=== PATIENT | female | born 1950 | race Caucasian/White ===

== ENCOUNTER → 2019-03-25 11:33 | Emergency (ER) | payer MEDICARE ==
[~2019-03-25 11:33] MED LIST: LORazepam TAB(*) 1 MG PO ONE; Meclizine TAB* 12.5 MG PO ONE; NS 0.9% 1000 ML** 1,000 ML IV ONE
[2019-03-25 14:51] LABS: ABS Eosinophils 0.2 10^3/ul (0-0.6); ABS Lymphocytes 0.9 10^3/ul (1.0-4.8); ABS Monocytes 0.5 10^3/ul (0-0.8); ABS Neutrophils 3.4 10^3/ul (1.5-7.7); Eosinophil % 3.8 %; Hematocrit 36 % (35-47); Lymphocyte % 17.9 %; Mean Corpuscular HGB Conc 33 g/dL (31-36); Mean Corpuscular Hemoglobin 32 pg (27-31); Mean Corpuscular Volume 95 fL (80-97); Mean Platelet Volume 6.8 fL (7.4-10.4); Platelet Count 262 10^3/uL (150-450); Red Cell Distribution Width 15 % (10.5-15)
[2019-03-25 15:14] LABS: ALT 10 U/L (7-52); AST 14 U/L (13-39); Albumin 4.2 g/dL (3.2-5.2); Albumin/Globulin Ratio 1.6 (1-3); Alkaline Phosphatase 81 U/L (34-104); Anion Gap 5 mmol/L (2-11); BUN/Creatinine Ratio 8.7 (8-20); Blood Urea Nitrogen 17 mg/dL (6-24); C Reactive Protein 11.09 mg/L (<8.01); CO2 Carbon Dioxide 28 mmol/L (22-32); Calcium 9.3 mg/dL (8.6-10.3); Chloride 107 mmol/L (101-111); Creatine Kinase 69 U/L (10-223); EGFR African American 30.5 (>60); EGFR Non-African American 25.2 (>60); Globulin 2.6 g/dL (2-4); Glucose 93 mg/dL (70-100); Magnesium 2.2 mg/dL (1.9-2.7); Potassium 4.6 mmol/L (3.5-5.0); Sodium 140 mmol/L (135-145); Total Protein 6.8 g/dL (6.4-8.9); Troponin I 0.01 ng/mL (<0.04)
[2019-03-25 15:29] LABS: Alcohol < 10 mg/dL (<10)
[2019-03-25 15:45] LABS: TSH (Thyroid Stimulating Horm) 1.03 mcIU/mL (0.34-5.60)
--- NOTE | 2019-03-25 16:23 | ED ---
Dizziness - HPI Summary HPI Summary: A 69 y/o female presents to [facility] with a chief complaint of dizziness since this morning. She reports that she was getting out of bed when she fell on some laundry cause everthing was spinning. . She said that she went down slowly and slid down the wall.No injuries. No LOC When she closes her eyes her dizziness gets better. The patient denies any fever, chills or ear pain. She did not vomit after breakfast, but still had nausea. She denies a headache, vision changes No cp, sob. No paresthesia, difficulty with speech or thought. No h/o similar - pt states does get motion sick. She reports a Hx of DM, HTN, bipolar, and anxiety. She takes Ativan or Seroquel. She also takes Prozac, but she has not taken her HTN medications since September. She states the pharmacy told her that doesn't make any mrore. Her PCP is Dr. Samson and she last saw her 1 month ago. Per daughter, the patient may have had a TIA. The patient denies smoking. She reports EtOH use but not today or yesterday. She is retired. She has not taken her medication today. - History Of Current Complaint Chief Complaint: EDDizziness Stated Complaint: DIZZINESS PER PT. Time Seen by Provider: 03/25/19 15:54 Hx Obtained From: Patient Onset/Duration: Still Present Timing: Hours Severity Initially: Mild Severity Currently: Mild Character: Dizzy Aggravating Factor(s): Nothing Alleviating Factor(s): Closing Eyes Associated Signs And Symptoms: Positive: Nausea. Negative: Vomiting, Fever - Allergies/Home Medications Allergies/Adverse Reactions: Allergies Allergy/AdvReac Type Severity Reaction Status Date / Time divalproex sodium Allergy Shakes Verified 03/25/19 16:02 [From Depakote] indomethacin [From Indocin] Allergy Diarrhea Verified 03/25/19 16:02 nabumetone [From Relafen] Allergy Unknown Verified 03/25/19 16:02 Reaction Details penicillin V Allergy Hives Verified 03/25/19 16:02 tramadol [From Ultram] Allergy Headache Verified 03/25/19 16:02 Home Medications: Home Medications Acetaminophen [Tylenol Extra Strength] 500 mg PO Q6HR PRN 03/25/19 [History Confirmed 03/25/19] Ascorbic Acid TAB* [Vitamin C TAB*] 1,000 mg PO BID 03/25/19 [History Confirmed 03/25/19] Budesonide/Formote 160/4.5(NF) [Symbicort 160/4.5 (NF)] 2 puff INH BID 03/25/19 [History Confirmed 03/25/19] Cromolyn Sodium [Nasal Allergy [place]] 2 spray BOTH NARES DAILY PRN 03/25/19 [ History Confirmed 03/25/19] Desmopressin TAB (NF) 0.1 mg PO BID 03/25/19 [History Confirmed 03/25/19] Diphenoxylat/Atrop 2.5-0.025M* [Lomotil TAB*] 1 tab PO QID PRN 03/25/19 [ History Confirmed 03/25/19] FLUoxetine CAP* [PROzac CAP*] 40 mg PO DAILY 03/25/19 [History Confirmed ] Gabapentin CAP(*) [Neurontin 300 CAP(*)] 300 mg PO BID 03/25/19 [History Confirmed 03/25/19] LORazepam TAB(*) [Ativan 0.5 MG TAB (*)] 0.5 mg PO Q6HR PRN 03/25/19 [History Confirmed 03/25/19] Lansoprazole CAP (NF) [Prevacid CAP (NF)] 40 mg PO DAILY 03/25/19 [History Confirmed 03/25/19] Levothyroxine TAB* [Synthroid TAB*] 88 mcg PO DAILY 03/25/19 [History Confirmed 03/25/19] Multivitamins/Minerals TAB* [Theragran/minerals TAB*] 1 tab PO DAILY 03/25/19 [ History Confirmed 03/25/19] Psyllium ADRIANA* [Metamucil ADRIANA*] 1 pkt PO DAILY PRN 03/25/19 [History Confirmed ] QUEtiapine TAB* [Seroquel 100 MG *] 200 mg PO BEDTIME 03/25/19 [History Confirmed 03/25/19] lamoTRIgine [Lamictal] 300 mg PO DAILY 03/25/19 [History Confirmed 03/25/19] PMH/Surg Hx/FS Hx/Imm Hx Previously Healthy: Yes Endocrine/Hematology History: Reports: Hx Diabetes - INSIPIDUS, Hx Thyroid Disease Cardiovascular History: Reports: Hx Hypertension Denies: Hx Pacemaker/ICD Respiratory History: Denies: Hx Asthma, Hx Chronic Obstructive Pulmonary Disease (COPD) GI History: Reports: Hx Gastroesophageal Reflux Disease, Hx Hiatal Hernia, Hx Irritable Bowel Denies: Hx Ulcer History: Denies: Hx Renal Disease Musculoskeletal History: Reports: Hx Fibromyalgia Sensory History: Denies: Hx Hearing Aid Psychiatric History: Reports: Hx Panic Disorder, Other Psychiatric Issues/ Disorders - schizo-affective disorder, SAD, anxiety - Cancer History Cancer Type, 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 Hx Chemotherapy: No Hx Radiation Therapy: No - Surgical History Surgery Procedure, Year, and Place: tubal ligation-CATARACTS 2010 Infectious Disease History: No Infectious Disease History: Reports: Hx Shingles Denies: Hx Clostridium Difficile, Hx Hepatitis, Hx Human Immunodeficiency Virus (HIV), Hx of Known/Suspected MRSA, Hx Tuberculosis, Hx Known/Suspected VRE , Hx Known/Suspected VRSA, History Other Infectious Disease, Traveled Outside the [place] in Last 30 Days - Family History Known Family History: Positive: Hypertension, Non-Contributory Family History: mother had ear tubes placed - Social History Occupation: Retired Lives: With Family Alcohol Use: Occasionally Substance Use Type: Reports: None Smoking Status (MU): Never Smoked Tobacco Review of Systems Negative: Fever, Chills Eyes: Negative Negative: Photophobia, Blurred Vision, Diplopia ENT: Negative Negative: Ear Ache Cardiovascular: Negative Respiratory: Negative Positive: Nausea. Negative: Vomiting Neurological: Other - positive: dizziness Negative: Headache All Other Systems Reviewed And Are Negative: Yes Physical Exam - Summary Physical Exam Summary: Vital Signs Reviewed: Yes A+Ox3, keeps eyes closed, slow movement Eyes: Conjunctiva Clear, CADY. EOM intact and full ENT: Hearing grossly normal TM x 2 clear, mmoist, uvula midline, no exudate, no erythema Neck: Positive: Supple Respiratory: Positive: No respiratory distress, No accessory muscle use + CTA throughout no w/r Cardiovascular: RRR nl s1, s2 no m/r CBT <2 sec, no bruits abd soft + BS NT/ND soft No CVA Musculoskeletal Exam: MONIQUE x 4 without difficulty Strength Intact, ROM Intact Neurological: Positive: Alert, Pt with 3 beat horizontal symptomatic nystagmus to right no photophobia other CN full and intact + full aROM strength x 4 +FNF + heel rowan bilat b/l equal sensation throughout Psychological: Positive: Normal Response To Family Skin: Positive: no rash, no ecchymosis Triage Information Reviewed: Yes Vital Signs On Initial Exam: Initial Vitals Temp Pulse Resp BP Pulse Ox 98.3 F 91 19 133/104 94 03/25/19 11:36 03/25/19 11:36 03/25/19 11:36 03/25/19 11:36 03/25/19 11:36 Diagnostics - Vital Signs Vital Signs Temp Pulse Resp BP Pulse Ox 03/25/19 13:24 98.3 F 87 17 129/87 96 03/25/19 11:36 98.3 F 91 19 133/104 94 - Laboratory Lab Results: Lab Results 03/25/19 03/25/19 03/25/19 Range/Units 14:41 14:41 14:41 WBC 5.0 (3.5-10.8) 10^3/uL RBC 3.80 (3.70-4.87) 10^6 /uL Hgb 12.0 (12.0-16.0) g/dL Hct 36 (35-47) % MCV 95 (80-97) fL MCH 32 H (27-31) pg MCHC 33 (31-36) g/dL RDW 15 (10.5-15) % Plt Count 262 (150-450) 10^3/uL MPV 6.8 L (7.4-10.4) fL Neut % (Auto) 68.5 % Lymph % (Auto) 17.9 % [place] % (Auto) 9.2 % Eos % (Auto) 3.8 % Baso % (Auto) 0.6 % Absolute Neuts (auto) 3.4 (1.5-7.7) 10^3/ul Absolute Lymphs (auto) 0.9 L (1.0-4.8) 10^3/ul Absolute Monos (auto) 0.5 (0-0.8) 10^3/ul Absolute Eos (auto) 0.2 (0-0.6) 10^3/ul Absolute Basos (auto) 0.0 (0-0.2) 10^3/ul Absolute Nucleated RBC 0.0 10^3/ul Nucleated RBC % 0.0 Sodium 140 (135-145) mmol/L Potassium 4.6 (3.5-5.0) mmol/L Chloride 107 (101-111) mmol/L Carbon Dioxide 28 (22-32) mmol/L Anion Gap 5 (2-11) mmol/L BUN 17 (6-24) mg/dL Creatinine 1.96 H (0.51-0.95) mg/dL Est GFR ( Amer) 30.5 (>60) Est GFR (Non-Af Amer) 25.2 (>60) BUN/Creatinine Ratio 8.7 (8-20) Glucose 93 (70-100) mg/dL Lactic Acid 0.4 L (0.5-2.0) mmol/L Calcium 9.3 (8.6-10.3) mg/dL Magnesium 2.2 (1.9-2.7) mg/dL Total Bilirubin 0.30 (0.2-1.0) mg/dL AST 14 (13-39) U/L ALT 10 (7-52) U/L Alkaline Phosphatase 81 (34-104) U/L Total Creatine Kinase 69 (10-223) U/L Troponin I 0.01 (<0.04) ng/mL C-Reactive Protein 11.09 H (<8.01) mg/L Total Protein 6.8 (6.4-8.9) g/dL Albumin 4.2 (3.2-5.2) g/dL Globulin 2.6 (2-4) g/dL Albumin/Globulin Ratio 1.6 (1-3) TSH 1.03 (0.34-5.60) mcIU/mL Serum Alcohol < 10 (<10) mg/dL Result Diagrams: 03/25/19 14:41 03/25/19 14:41 Lab Statement: Any lab studies that have been ordered have been reviewed, and results considered in the medical decision making process. - CT Brain CT Interpretation Completed By: Radiologist Summary of CT Findings: . 1. NO EVIDENCE FOR ACUTE INTRACRANIAL ABNORMALITY. 2. FINDINGS SUGGESTIVE OF MILD CHRONIC SMALL VESSEL ISCHEMIC CHANGES. ED physician has reviewed this imaging report. - EKG 15:16 Cardiac Rate: NL - 69 bpm EKG Rhythm: Sinus Rhythm ST Segment: Normal Ectopy: None Summary of EKG Findings: NSR at 69 bpm, no ST elevation. 14:34 Cardiac Rate: NL - 62 bpm EKG Rhythm: Sinus Rhythm Summary of EKG Findings: NSR at 62 bpm, no acute ST-T wave changes, no STEMI. Re-Evaluation - Re-Evaluation First Eval Re-Evaluation Time: 16:39 Change: Unchanged Comment: Ativan dose of 0.5 mg confirmed. Kwame has no recent blood pressure medication since June - amlipdioine Second Eval Re-Evaluation Time: 17:19 Change: Improved Comment: Pt feeling better after medication sittingup watching TV Third Eval Re-Evaluation Time: 17:57 Change: Improved Comment: Discussed results of negative CT. Pt is feeling better, drinking gingerale and eating crackers. Anticipate discharge. Fourth Eval Re-Evaluation Time: 18:13 Change: Improved Comment: Pt is feeling better and eating more crackers. The patient will be given Amlodipine, which was her BP medication. Also Rx meclizine. strict return precautions - pt comfortable with plan Dizzy Course/Dx - Course Course Of Treatment: Pt presents with dizziness that was present when woke .worse with movement ofhead and eyes mild nausea, no vomiting no trauma no other complaints. Pt has not taken BP meds in several months. At triage BP elevated - VS improved at time of exam - h/o htn, not taking meds. Pt with horizontal, symptomatic nystagmus. no other focal findins - suspect vertigo. will check labs, CT head. meclezine, ativan (pt take 0.5mg - confirmed with istop and I called kwame). It had been taking amlodipine - will reorder for pt. close monitor - Diagnoses Provider Diagnoses: Vertigo Discharge - Sign-Out/Discharge Documenting (check all that apply): Patient Departure - DC Patient Received Moderate/Deep Sedation with Procedure: No - Discharge Plan Condition: Stable Disposition: HOME Prescriptions: amLODIPine TAB* [Norvasc 5 mg TAB*] 10 mg PO DAILY #30 tab Meclizine HCl [Motion Sickness II] 25 mg PO Q8HR PRN #15 tablet PRN Reason: Dizziness Patient Education Materials: Vertigo (ED), Hypertension (ED) Referrals: Charmaine Samson MD [Primary Care Provider] - Additional Instructions: - stay well hydrated. Drink plenty of non-alcoholic, non-caffinated beverages - SLOWLY change positions - lying to sitting, sitting to standing - take meclizine as prescruibed until gone -schedule a follow up appointment with your primary care provider For your blood pressure: - eat and drink low salt diet - you have been sent a refill for your amlopdipine - this is the blood pressure medication you were previously on - it is recommended you contact Dr. Davis tomorrow to review your medication - Billing Disposition and Condition Condition: STABLE Disposition: Home - Attestation Statements Document Initiated by Armida: Yes Documenting Scribe: Angel Gomez Provider For Whom Armida is Documenting (Include Credential): Chely Clark MD Scribe Attestation: I, Angel Gomez, scribed for Chely Clark MD on 03/27/19 at 2114. Scribe Documentation Reviewed: Yes Provider Attestation: The documentation as recorded by the Angel al accurately reflects the service I personally performed and the decisions made by me, Chely Clark MD Status of Scribe Document: Viewed
[2019-03-25 19:10] VITALS: BP 152/78
== END | disposition home or self-care (01) ==
LOC: ED 11:33
DX: R42 Dizziness and giddiness (principal); E11.9 Type 2 diabetes mellitus without complications; I10 Essential (primary) hypertension; E07.9 Disorder of thyroid, unspecified; Z79.899 Other long term (current) drug therapy; Z88.0 Allergy status to penicillin; Z88.8 Allergy status to other drugs, medicaments and biological substances
CPT/HCPCS: 36415; 70450; 80053; 80320; 82550; 83605; 83735; 84443; 84484; 85025; 86140; 93005; 96360; 96361; 99283; A9270-GY; G0480

== ENCOUNTER 2019-05-06 12:54 | Emergency (ER) | payer MEDICARE ==
--- NOTE | 2019-05-06 14:34 | ED ---
Respiratory - HPI Summary HPI Summary: Pt. is a 69 y.o female who presents to the ER for nasal congestion and cough x 4 days. Pt. notes hx of COPD but denies increase in SOB. Pt. denies fever, SOB, CP, abd. pain, V/D, urinary sxs. Pt.'s being seen today for similar sxs of cough. Pt.'s daughter is present who states she feels she has bronchitis vs pneumonia as she has had these in the past. Daughter states the looks "pale." Sxs are mild-moderate in severity. No current modifying factors. - History of Current Complaint Chief Complaint: EDUpperRespComplaint Stated Complaint: COUGHING/CONGESTED PER PT Time Seen by Provider: 05/06/19 13:48 Hx Obtained From: Patient Pain Intensity: 9 - Allergy/Home Medications Allergies/Adverse Reactions: Allergies Allergy/AdvReac Type Severity Reaction Status Date / Time divalproex sodium Allergy Shakes Verified 05/06/19 13:00 [From Depakote] indomethacin [From Indocin] Allergy Diarrhea Verified 05/06/19 13:00 nabumetone [From Relafen] Allergy Unknown Verified 05/06/19 13:00 Reaction Details penicillin V Allergy Hives Verified 05/06/19 13:00 tramadol [From Ultram] Allergy Headache Verified 05/06/19 13:00 PMH/Surg Hx/FS Hx/Imm Hx Previously Healthy: Yes Endocrine/Hematology History: Reports: Hx Diabetes - INSIPIDUS, Hx Thyroid Disease Cardiovascular History: Reports: Hx Hypertension Denies: Hx Pacemaker/ICD Respiratory History: Denies: Hx Asthma, Hx Chronic Obstructive Pulmonary Disease (COPD) GI History: Reports: Hx Gastroesophageal Reflux Disease, Hx Hiatal Hernia, Hx Irritable Bowel Denies: Hx Ulcer History: Denies: Hx Renal Disease Musculoskeletal History: Reports: Hx Fibromyalgia Sensory History: Denies: Hx Hearing Aid Psychiatric History: Reports: Hx Panic Disorder, Other Psychiatric Issues/ Disorders - schizo-affective disorder, SAD, anxiety - Cancer History Cancer Type, 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 Hx Chemotherapy: No Hx Radiation Therapy: No - Surgical History Surgery Procedure, Year, and Place: tubal ligation-CATARACTS 2010 Infectious Disease History: No Infectious Disease History: Reports: Hx Shingles Denies: Hx Clostridium Difficile, Hx Hepatitis, Hx Human Immunodeficiency Virus (HIV), Hx of Known/Suspected MRSA, Hx Tuberculosis, Hx Known/Suspected VRE , Hx Known/Suspected VRSA, History Other Infectious Disease, Traveled Outside the [place] in Last 30 Days - Family History Known Family History: Positive: Hypertension, Other, Non-Contributory Family History: mother had ear tubes placed - Social History Occupation: Retired Lives: With Family Alcohol Use: Occasionally Substance Use Type: Reports: None Smoking Status (MU): Never Smoked Tobacco Review of Systems Constitutional: Negative Negative: Fever, Chills Eyes: Negative Positive: Nasal Discharge Cardiovascular: Negative Negative: Palpitations, Chest Pain Positive: Cough. Negative: Shortness Of Breath Gastrointestinal: Negative Negative: Abdominal Pain, Vomiting, Diarrhea Genitourinary: Negative Negative: dysuria Musculoskeletal: Negative Skin: Negative Neurological: Negative All Other Systems Reviewed And Are Negative: Yes Physical Exam Triage Information Reviewed: Yes Vital Signs On Initial Exam: Initial Vitals Temp Pulse Resp BP Pulse Ox 97.9 F 109 19 105/59 94 05/06/19 12:55 05/06/19 12:55 05/06/19 12:55 05/06/19 12:55 05/06/19 12:55 Vital Signs Reviewed: Yes Appearance: Positive: Well-Appearing - Pt. sitting in chair in NAD. Wearing mask. Family present. Skin: Positive: Warm, Dry Head/Face: Positive: Normal Head/Face Inspection Eyes: Positive: Normal, EOMI, CADY, Conjunctiva Clear ENT: Positive: Nasal congestion Neck: Positive: Supple. Negative: Nuchal Rigidity Respiratory/Lung Sounds: Positive: Clear to Auscultation, Breath Sounds Present. Negative: Rales, Rhonchi, Stridor, Wheezes Cardiovascular: Positive: Normal, RRR Musculoskeletal: Positive: Normal, Strength/ROM Intact Neurological: Positive: Normal, CN Intact II-III Psychiatric: Positive: Affect/Mood Appropriate Diagnostics - Vital Signs Vital Signs Temp Pulse Resp BP Pulse Ox 05/06/19 12:55 97.9 F 109 19 105/59 94 - Laboratory Result Diagrams: 05/06/19 15:13 05/06/19 15:13 Lab Statement: Any lab studies that have been ordered have been reviewed, and results considered in the medical decision making process. Disposition - Course Course Of Treatment: Pt. presenting with cough and sinus congestion. Afebrile with stable VS. Lungs are clear on exam without wheeze. Basic labs and CXR ordered. Labs are unremarkable other than mild increase in Cr from pt.'s baseline. CXR negative for acute findings per radiology. WIll tx with bronchitis with zithromax. To continue albuterol as directed. Close f.u with PCP and will return to ER if sxs change or worsen. Pt. and family understand and agree with plan. - Differential Dx - Cardiopulmonary Differential Diagnoses - Cardiopulmonary: Asthma, Lower Resp Infection, Sinusitis - Diagnoses Provider Diagnoses: Bronchitis Discharge - Sign-Out/Discharge Documenting (check all that apply): Patient Departure Patient Received Moderate/Deep Sedation with Procedure: No - Discharge Plan Condition: Good Disposition: HOME Prescriptions: Azithromycin TAB* [Zithromax TAB (Z-ADRIANA) 250 mg #6 tabs] 2 tab PO .TODAY, THEN 1 DAILY #1 adriana Patient Education Materials: Acute Bronchitis (ED) Referrals: Charmaine Samson MD [Primary Care Provider] - Additional Instructions: Follow up with PCP in 2-3 days Antibiotic as directed Continue inhaler as directed Increase fluids and rest Return to ER if symptoms change or worsen - Billing Disposition and Condition Condition: GOOD Disposition: Home - Attestation Statements Provider Attestation: I was available for consult. This patient was seen by the JORGE. The patient was not presented to, seen by, or examined by me. -Nancy
[2019-05-06 15:19] LABS: ABS Eosinophils 0.4 10^3/ul (0-0.6); ABS Lymphocytes 1.2 10^3/ul (1.0-4.8); ABS Monocytes 0.5 10^3/ul (0-0.8); ABS Neutrophils 3.5 10^3/ul (1.5-7.7); Eosinophil % 6.6 %; Hematocrit 35 % (35-47); Hemoglobin 11.9 g/dL (12.0-16.0); Lymphocyte % 20.9 %; Mean Corpuscular HGB Conc 34 g/dL (31-36); Mean Corpuscular Hemoglobin 31 pg (27-31); Mean Corpuscular Volume 93 fL (80-97); Mean Platelet Volume 6.2 fL (7.4-10.4); Platelet Count 298 10^3/uL (150-450); Red Cell Distribution Width 15 % (10-15); White Blood Count 5.5 10^3/uL (3.5-10.8)
[2019-05-06 15:40] LABS: Albumin 4.3 g/dL (3.2-5.2); Albumin/Globulin Ratio 1.5 (1-3); BUN/Creatinine Ratio 11.4 (8-20); C Reactive Protein 32.01 mg/L (<8.01); Calcium 9.2 mg/dL (8.6-10.3); EGFR African American 24.5 (>60); EGFR Non-African American 20.3 (>60); Globulin 2.8 g/dL (2-4); Potassium 4.6 mmol/L (3.5-5.0); Total Bilirubin 0.3 mg/dL (0.2-1.0); Total Protein 7.1 g/dL (6.4-8.9)
[2019-05-06 16:31] VITALS: BP 96/57
== END 2019-05-06 16:30 | disposition home or self-care (01) ==
LOC: ED 12:54
DX: J40 Bronchitis, not specified as acute or chronic (principal); E11.9 Type 2 diabetes mellitus without complications; I10 Essential (primary) hypertension; Z88.0 Allergy status to penicillin; Z88.8 Allergy status to other drugs, medicaments and biological substances
CPT/HCPCS: 36415; 71046; 80053; 85025; 86140; 99282

== ENCOUNTER 2019-05-22 16:26 | Emergency (ER) | payer MEDICARE ==
--- OUTSIDE RECORDS SUMMARY | 2019-05-22 17:19 | XMS REPORT | Continuity of Care Document ---
:1950 External Reference #:[id number] Author Name Manny Mchugh Address [address] [facility] [place] [address] Care Team Providers Name Role Phone Charmaine Samson Care Team Information Personal Counselor Unavailable Charmaine Samson Primary Care Physician Unavailable Payers Date Identification Numbers Payment Provider Subscriber Effective: 2018 Policy Number: [id number] Medicare Blue Ppo Jaymie Anthony PayID: [id number] [address] [address] [place] [address] Effective: 1995 Policy Number: [id number] Medicare [place] Jaymie Anthony Expires: 2019 PayID: [id number] [address] [place] [address] Problems Active Problems Provider Date Essential hypertension Nicole De La Rosa M.D. Onset: 10/22/2011 Diabetes insipidus Nicole De La Rosa M.D. Onset: 10/22/2011 Hypothyroidism Nicole De La Rosa M.D. Onset: 10/22/2011 Irritable bowel syndrome Nicole De La Rosa M.D. Onset: 10/22/2011 Renal function tests abnormal Nicole De La Rosa M.D. Onset: 10/22/2011 Acute bronchitis Nicole De La Rosa M.D. Onset: 10/22/2011 Impaired fasting glycaemia Nicole De La Rosa M.D. Onset: 04/07/2012 Gastroesophageal reflux disease Charmaine Samson M.D. Onset: 06/24/2012 Myalgia & Myositis Unspecified Charmaine Samson M.D. Onset: 10/29/2012 Chronic rhinitis Charmaine Samson M.D. Onset: 10/29/2012 Chronic renal failure Charmaine Samson M.D. Onset: 03/24/2013 Malaise and fatigue Charmaine Samson M.D. Onset: 08/12/2015 Bipolar disorder Charmaine Samson M.D. Onset: 01/30/2017 Adjustment disorder with anxious mood Charmaine Samson M.D. Onset: 2016 Chronic kidney disease Charmaine Samson M.D. Onset: 01/07/2018 Family History Date Family Member(s) Observation Comments Father Hypertension DM. Bladder Cancer - surgery and chemo. [place]. Mother Arthritis HTN, DM. [place], between [place] and [place]. First Son Milton First Son healthy. Allergies. First Daughter Fibromyalgia First Daughter Chronic Fatigue Pandaanastasia. First Daughter Sosa Second Daughter Alina Second Daughter lives in [place], [place] First Brother Healthy. [place]. Afib. 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 Tobacco Use Start: Unknown Patient has never smoked Recreational Drug Use Denies Drug Use Exercise Type/Frequency Does not Current exercise--Walks alot to take care if her who had a stroke, has a catheter for kidney stones. Does outside work and housework. gardens. Seat Belt/Car Seat Always uses a seat belt Allergies, Adverse Reactions, Alerts Active Allergies Reaction Severity Comments Date Indocin 06/14/2006 Penicillin 06/14/2006 Ultram headaches 06/14/2006 Relafen 06/14/2006 Prednisone 05/18/2014 Losartan cough cough 04/23/2016 Ranitidine dizzy, couldn't walk a straight line 04/15/2017 Medications Active Medications SIG Qnty Indications Ordering Provider Date Doxycycline Hyclate 1 by mouth 20caps Rochelle Wardflvivian, 05/11/2019 twice a day Afnp-C 100mg Capsules Symbicort inhale 2 puffs 10.2units Charmaine L. 09/03/2018 by mouth two Benjy Samson 160-4.5mcg/Act times a day Aerosol wash mouth after using. Advair Diskus 1 puff twice a 60units Charmaine L. 08/19/2018 day and rinse Benjy Samson 250-50mcg/Dose after Aerosol Ventolin HFA 2 puffs every 18units Charmaine L. 01/15/2018 4 hours as Benjy Samson 108(90Base) mcg/Act needed Aerosol Azelastine HCL 2 sprays each 30ml Rochelle Ednakia, 10/09/2016 (Nasal) nostril each Afnp-C 0.1% Solution day Amlodipine Besylate 1 by mouth 90tabs Charmaine L. 10/01/2016 every day Benjy Samson 10mg Tablets Gabapentin take one 180caps Charmaine L. 05/17/2016 300mg capsule by Bnejy Samson Capsules mouth in the morning then one in the evening Diphenoxylate-Atropin 1 by mouth 60tabs Charmaine L. 04/11/2016 e after each Benjy Samson 2.5-0.025mg Tablets loose stool up to 4 times a day. Levothyroxine Sodium take one 90tabs Charmaine L. 10/19/2015 tablet by Benjy Samson 88mcg Tablets mouth once daily Lamictal 1 po qd [facility] 08/20/2014 200mg [facility]ts [facility] Lonox 1 by mouth as 30tabs Charmaine L. 03/08/2014 2.5mg;0.025 mg needed up to Benjy Sasmon Tablets 4x day Desmopressin Acetate take one 180tabs E23.2 Charmaine L. 06/24/2012 tablet by Benjy Samson 0.1mg Tablets mouth twice daily Vitamin C 1 PO qd [facility] 12/06/2006 500mg [facility] Capsules [place] Multivitamin 1 PO qd 0units [facility] 12/06/2006 Stress Tab [facility] [place] Fluoxetine 2 qam 30caps [facility] 06/14/2006 20mg [facility] Capsules [place] Pantoprazole Sodium 1 by mouth Z00.00 Unknown every day 40mg Tablets DR Toscano Allergy 24HR use two sprays Unknown in each 55mcg/Act Aerosol nostril twice a day Tylenol Arthritis 120tabs Unknown Pain 650mg Tablets ER Seroquel 1 po w/ lunch, Unknown 100mg Tablets 1 po w/ dinner, and 3 by mouth at bedtime Lorazepam 2 1/2 pills by Unknown 0.5mg Tablets mouth total spread out during the day. History Medications Azithromycin 2 by mouth today. 1 6tabs Charmaine Parish 10/02/2018 - 250mg by mouth daily x 4 Benjy Samson 02/10/2019 Tablets Doxycycline Hyclate take one capsule by 20caps Charmaine Parish 11/20/2017 - mouth twice a day Benjy Samson 01/07/2018 100mg Capsules Cefdinir 1 by mouth twice 20caps J15.8 Cem FTab 11/05/2017 - 300mg daily Benjy Nieto 01/07/2018 Capsules Cheratussin ac 5 -10 milliliters 100ml J15.8 Charmaine Parish 11/05/2017 - by mouth at night Benjy Samson 01/07/2018 100-10mg/5ML for cough Solution Azithromycin 2 by mouth today. 1 6tabs J20.9 Charmaine Parish 10/15/2017 - 250mg by mouth daily x 4 Benjy Samson 10/15/2017 Tablets Cefuroxime Axetil 1 by mouth twice a 20tabs Charmaine Parish 10/15/2017 - day x 10 Benjy Samson 01/07/2018 500mg Tablets Cephalexin 1 by mouth three 30caps L03.1 Charmaine Parish 04/15/2017 - 250mg times daily for 10 16 Benjy Samson 10/15/2017 Capsules days. Benzonatate 1 by mouth twice 60caps Charmaine Parish 09/04/2016 - 200mg daily as needed Benjy Samson 02/10/2019 Capsules cough. Nexium 1 by mouth in the 90caps Z00.0 Charmaine LTab 04/23/2016 - 20mg am and 2 in the pm. 0 Benjy Samson 08/27/2016 Capsules Amlodipine Besylate 1 by mouth every 90tabs Charmaine LTab 01/30/2016 - day Benjy Samson 10/01/2016 5mg Tablets Cefuroxime Axetil 1 by mouth twice a 20tabs Charmaine LTab 01/25/2016 - day x 10 Benjy Samson 03/12/2016 500mg Tablets Pantoprazole Sodium take 1 tablet by 90tabs Z00.0 Charmaine Parish 01/18/2016 - mouth q Am. 0 Benjy Samson 03/12/2016 40mg Tablets Diazepam 1/2 pill tonight. 6tabs Charmaine Parish 01/18/2016 - 5mg /2 - 4 pills 1/2 Benjy Samson 02/10/2019 Tablets hour prior to procedure Lansoprazole 1 by mouth every 270caps Z00.0 Charmaine LTab 12/26/2015 - 15mg morning, 2 by mouth 0 Benjy Samson 04/23/[address] at at bedtime Ranitidine HCL 1 by mouth at 90caps Charmaine LTab 12/26/2015 - night. Benjy Samson 08/27/2016 300mg Capsules Proair HFA 2 puffs every 4 1units Charmaine Parish 12/07/2015 - hours as needed Benjy Samson 01/15/2018 108(90Base) mcg/Act Aerosol Clindamycin HCL 1 by mouth three 30caps J41.0 Charmaine LTab 11/25/2015 - times daily Benjy Samson 12/28/2015 300mg Capsules Doxycycline Hyclate 1 by mouth twice a 14caps A69.2 Joann Hurley, 2014 - day 0 Afnp-C 08/25/2015 100mg Capsules Cefuroxime Axetil 1 by mouth twice a 28tabs Charmaine LTab 08/03/2015 - day x 14 days Benjy Samson 08/12/2015 500mg Tablets Doxycycline Hyclate 1 by mouth twice a 60caps Charmaine Parish 07/15/2015 - day on an empty Benjy Samson 08/12/2015 100mg Capsules stomach x 30 days. Rolling Walker With dx: fatigue and R53.1 Charmaine Parish 08/20/2014 - Seat fibromyalgia Benjy Samson 02/10/2019 Losartan Potassium 1 by mouth every 90tabs I10 Charmaine Parish 08/20/2014 - day Benjy Samson 01/30/2016 50mg Tablets Levaquin 1 po qd 10tabs 466.0 Charmaine Parish 05/18/2014 - 500mg Benjy Samson 08/20/2014 Tablets Levothyroxine 1 by mouth every 90tabs Charmaine Parish 04/06/2014 - Sodium day Benjy Samson 10/19/2015 100mcg Tablets Cordran Tape apply for 12 hours 2months 782.9 Charmaine Parish 10/12/2013 - over hand lesion Benjy Samson 05/18/2014 4mcg/SQCM Tape Clindamycin HCL one tab po tid for 30caps 682.8 Charmaine Parish 10/12/2013 - 10 days with yogurt Benjy Samson 05/18/2014 300mg Capsules or kefir Oxycodone/Acetamino 1-2 po q 6 hours 30tabs 521.0 Charmaine Parish 10/12/2013 - phen 3 Benjy Samson 08/20/2014 5-325mg Tablets Levothyroxine 1 po daily pudt 100units Charmaine Parish 07/08/2013 - Sodium Benjy Samson 04/06/2014 100mcg Solution Rec Seroquel XR 2 po daily 60tabs Charmaine Parish 01/05/2013 - 300mg Benjy Samson 03/24/2013 Tablets ER 24HR Quetiapine Fumarate 2 po qhs Charmaine Parish 01/05/2013 - Benjy Samson 01/05/2013 300mg Tablets ER 24HR Lyrica 1 by mouth twice a 180caps M79.7 Charmaine Parish 10/29/2012 - 50mg day code d Benjy Samson 10/09/2016 Capsules Nasonex 2 sprays each 3month 472.0 Charmaine Parish 10/29/2012 - 50mcg/Act nostril daily Benjy Samson 05/18/2014 Suspension Levothyroxine 1 po qd 100tabs Charmaine Parish 08/17/2012 - Sodium Benjy Samson 03/15/2014 100mcg Tablets Lansoprazole 1 by mouth every 270caps Z00.0 Charmaine Parish 06/24/2012 - 15mg morning, 2 by mouth 0 Benjy Samson 12/26/[address] at at bedtime Cordran Tape apply for 12 hours 3month Nicole Bowser 05/05/2012 - over hand lesion Benjy De La Rosa 10/29/2012 4mcg/SQCM Tape Nystatin Apply To Rash bid 60gm Nicole Bowser 05/05/2012 - Until Resolved Benjy De La Rosa 10/12/2013 406403Cjck/GM Cream Seroquel 2 po qhs Charmaine Parish 04/07/2012 - 300mg Benjy Samson 01/05/2013 Tablets ER 24HR Lamictal 1 1/2 po qam [facility] 03/03/2012 - 300mg [facility] 08/20/2014 Tablets ER 24HR [place] Calcium/Vitamin D 1 po bid [facility] 03/03/2012 - [facility] 12/28/2015 1200mg/1000 Iu [place] Tablets Vitamin D-3 1 po qd [facility] 03/03/2012 - [facility] 12/28/2015 5000Unit Tablets [place] Losartan Potassium 1 po qd 90tabs Charmaine Parish 08/24/2011 - pudt Benjy Samson 08/20/2014 50mg Tablets Betamethasone use sparingly on 250ml Rochelle 06/25/2011 - Dipropionate neck rash as Nic 10/22/2011 0.05% directed Afnp-C Lotion Nystatin Apply To Rash bid 60gm Leila gunter 03/14/2011 - Until Resolved Benjy Hoskins 10/22/2011 976033Kzpu/GM Cream Tazorac apply to hand 30gm Leila gunter 02/19/2011 - 0.1% Cream lesion bid Benjy Hoskins 10/22/2011 Cordran Tape apply for 12 h ours 1MonthSupply Leila gunter 02/19/2011 - over hand lesion Benjy Hoskins 10/22/2011 4mcg/SQCM Tape Prevacid 1 po qd Leila gunter 02/19/2011 - 15mg Benjy Hoskins 02/19/[address] Holloway 1 po bid 60caps Charmaine Parish 07/27/2010 - 50mg Benjy Samson 10/29/2012 Capsules Premarin use intravaginally 3monthsupply Charmaine Parish 07/07/2010 - W/Applicator every night x 3 Benjy Samson 03/24/2013 weeks, then 2 times 0.625mg/GM Cream weekly Percocet 1-2 po every 6 60tabs John Luna, 05/23/2010 - 5-325mg hours prn pain Benjy 02/19/2011 Tablets Hydrocortisone apply to affected 30gm Rochelle 04/19/2010 - Marvin-[facility] bid[facility] 05/[facility]2010 Afnp-C 2.5-1% Cream Mammogram PT needs her Leila gunter 05/04/2009 - to Benjy Hoskins 08/10/2009 accompany her for her mammogram due her strong fear of medical people Amie 1 po bid 180caps Leila gunter 11/19/2008 - 50mg Benjy Hoskins 07/01/2011 Capsules code D-3 month supply Lyrica 1 po qhs x 2 weeks, 180caps Leila gunter 11/15/2008 - 50mg then 1 po qam with Benjy Hoskins 11/19/2008 Capsules breakfast and cont on 1 po qhs 3 month supply Nasonex 2 sprays both 3units Nicole Bowser 11/15/2008 - 50mcg/Act nostrils daily Benjy De La Rosa 03/24/2013 Suspension Buspar 1 PO bid [facility] 08/11/2008 - 30mg Tablets [facility] 12/28/2015 [place] Lamictal 1 PO Q Am [facility] 08/11/2008 - 200mg [facility] 03/03/2012 Tablets [facility] Seroquel 1 1/2 -2 PO QHS [facility] 08/11/2008 - 200mg [facility] 04/07/2012 Tablets [facility] Fiber Therapy 10 Per Day [facility] 08/11/2008 - 500mg [facility] 03/24/2013 Tablets Akanksha Lactaid 2 PO qd Family [facility] 08/11/2008 - 3000Unit [facility] 04/19/2010 Tablets [facility] Lyrica 1 po qhs 30caps Leila von 04/06/2008 - 25mg Benjy Hoskins 11/15/2008 Capsules Prevacid 1 po qm 90caps Leila [facility] 04/06/2008 - 30mg Benjy Hoskins 05/06/[address] Ambrosio [address] [facility] 03/23/2008 - 75mg Tablets Benjy Hoskins 06/24/2012 Seroquel 1 1/2 AT [facility] Before Family Medicine 03/04/2008 - 100mg CARITO Appts [facility] 08/11/2008 Tablets Akanksha Xopenex Hfa 1-2 puff every 4-6 1Mdi Leila gunter 03/04/2008 - hours as needed Benjy Hoskins 05/06/2008 45mcg/Act Aerosol Xopenex Hfa 1-2 puff every 6 3Mdi Leila [facility] 03/04/2008 - hours Benjy Hoskins 05/06/2008 45mcg/Act Aerosol Prevacid 1 po qam and 2 po 270caps Leila [facility] 02/25/2008 - 15mg qpm Benjy Hoskins 08/20/[address] Major 1 PO Q Am, 1 PO Q [facility] 12/03/2007 - PM [facility] 08/11/2008 [facility] Prevacid 1 po qd 90units Leila [facility] 11/25/2007 - 15mg Benjy Hoskins 02/25/2008 Chewable Lamictal 3 po qd [facility] 09/03/2007 - 50mg [facility] 08/11/2008 Tablets [facility]ha Lisinopril 1 PO qd 30tabs Leila gunter 09/03/2007 - 10mg Benjy Hoskins 03/23/2008 Tablets Levaquin 1 po qd 10tabs Leila gunter 07/17/2007 - 250mg Benjy Hoskins 09/03/2007 Tablets Compazine 1 po q8 hours prn 30tabs Leila gunter 07/17/2007 - 10mg nausea Benjy Hoskins 08/20/2014 Tablets Return To Pool PT Is Free Of Leila gunter 07/11/2007 - Contagious Disease Benjy Hoskins 05/06/2008 And Rash And May Enter Pool Bactrim DS 1 PO bid 10tabs Leila gunter 07/11/2007 - Benjy Hoskins 07/17/2007 160mg;800 mg Tablets Zovirax Apply bid To Family Medicine 04/22/2007 - 5% Cream Affected Area [facility] 03/04/2008 [place] Hydrocodone/Apap 1 po q4- 6 hrs prn Family [facility] 04/22/2007 - pain [facility] 07/24/2007 5/500 Tablets [place] Prevacid 1 po qpm 90tabs Leila gunter 03/28/2007 - 30mg Benjy Hoskins 04/06/2008 Tablets Singulair 1 po qd 90tabs Charmaine Parish 03/28/2007 - 10mg Benjy Samson 08/20/2014 Tablets Mycolog-II Apply To Affected 30gm Leila gunter 03/28/2007 - Area 2-3 Times Benjy Hoskins 05/06/2008 100,000Units;0.1% Daily Until Cream Resolved Tazorac [facility] 01/24/2007 - 0.1% Cream [facility] 04/19/2010 [place] Cardram Tape [facility] 01/24/2007 - [facility] 08/11/2008 [place] Prednicarbate Cream [facility] 01/24/2007 - [facility] 04/19/2010 [place] Proventil HFA 2 puffs q4hrs prn 3units Leila gunter 12/20/2006 - Benjy Hoskins 05/06/2008 Inhaler Mdi Xopenex-HFA Samples Leila gunter 12/06/2006 - Benjy Hoskins 12/20/2006 Avapro 1 po qhs Samples Leila gunter 12/06/2006 - 150mg Benjy Hoskins 03/28/2007 Tablets Calcium+Vit.D 1 PO BId Family [facility] 12/06/2006 - 600mg [facility] 04/19/2010 [facility] Lab Order TSH, free T4, cmp Leila gunter 09/30/2006 - Benjy Hoskins 01/24/2007 dx: hypothyroidism, medication surveillance Lonox 1 po prn up to 4x 30tabs Charmaine Parish 06/14/2006 - 2.5-0.025mg day pudt Benjy Samson 03/15/2014 Tablets Vagifem Vaginal 1 twice A week 24units Leila gunter 06/14/2006 - Tabs Benjy Hoskins 02/19/2011 25mcg Lonox 1 po prn up to 4x 30tabs Charmaine Parish 06/14/2006 - 2.5mg;0.025 day Benjy Samson 03/08/2014 mg Tablets Lisinopril 1 po qd 30tabs Leila gunter 06/14/2006 - 10mg Benjy Hoskins 03/28/2007 Tablets Gabapentin 1 tid 180caps [facility] 06/14/2006 - 600mg [facility] 12/03/2007 Capsules [facility] Ddavp 1 bid 180tabs Leila gunter 06/14/2006 - 0.1mg Rd Hoskins M.D. 03/24/2013 Benzonatate 3-6 qd Family [facility] 06/14/2006 - 100mg [facility] 12/06/2006 Capsules [facility] Levothroid 1 po qd 90tabs Charmaine Parish 06/14/2006 - 0.1mg Benjy Samson 07/08/2013 Tablets Prevacid 1 po qhs 90capdavid gunter 06/14/2006 - 30mg Benjy Hoskins 03/15/2007 Capsules Prevacid 1 po qam 90joaquin gunter 06/14/2006 - 15mg Benjy Hoskins 11/25/2007 Capsules Buspirone 2 po qd Family [facility] 06/14/2006 - 15mg [facility] 03/28/2007 Tablets [facility] Risperdal 1/2 qhs 0tabs Leila gunter 06/14/2006 - 0.25mg Benjy Hoskins 07/11/2007 Tablets Depakote 1 po QHS 60tabs [facility] 06/14/2006 - 500mg [facility] 12/06/2006 Tablets [place] BLM herbal per Unknown - 02/19/2011 Doxycycline 1 po bid 28caps Unknown - Monohydrate 08/20/2014 100mg Capsules Ventolin HFA 2 puffs q 4 hrs prn 1units Unknown - 08/20/2014 108(90Base) mcg/Act Aerosol Mucinex DM 1 po q 12 hrs prn 30tabs Unknown - 30-600mg 02/10/2019 Tablets ER 12HR Flonase Allergy 2 sprays in each Unknown - Relief nostril daily 12/28/2015 50mcg/Act Suspension Percocet 1 tabs by mouth 40tabs Charmaine L. - 5-325mg every 6 hours as Benjy Samson 10/29/2017 Tablets needed Medications Administered in Office Medication SIG Qnty Indications Ordering Provider Date H1N1 MDCR vaccine any route Leila Barrios M.D. 01/02/2010 Injection Immunizations CPT Code Status Date Vaccine Lot # [id number] Given 10/21/2018 High-Dose, Influenza Virus Vacccine-fluzone 65 and [id number] older [id number] Given 08/27/2016 Influenza Vac, Quadrivalent, Slit Virus, Im [id number] 37484 Given 03/12/2016 Pneumococcal Conjugate Vacc-13 [id number] 49337 Given 08/12/2015 Influenza Vac, Quadrivalent, Slit Virus, Im [id number] 15422 Given 08/20/2014 High-Dose, Influenza Virus Vacccine-fluzone 65 and [id number] older 83365 Given 10/12/2013 Preservative free flu 3 yrs+ and older [id number] 57506 Given 03/14/2011 Zostivax [id number] 83211 Given 07/09/2010 DO Not Use Split Influenza Virus Vaccine 14113 Given 01/02/2010 DO Not Use Split Influenza Virus Vaccine [id number] 01116 Given 08/10/2009 Tetanus And Diptheria Adult Preservative Free [id number] >7Yrs 36280 Given 08/11/2008 DO Not Use Split Influenza Virus Vaccine [id number] 39651 Given 09/03/2007 DO Not Use Split Influenza Virus Vaccine [id number] 74120 Given 09/20/2006 Pneumococcal Immunization [id number] 59907 Given 09/20/2006 DO Not Use Split Influenza Virus Vaccine [id number] Vital Signs Date Vital Result Comment 05/11/2019 4:44pm BP Systolic 124 mmHg BP Diastolic 88 mmHg Heart Rate 86 /min Body Temperature 98.8 F Respiratory Rate 18 /min Height 62.25 inches 5'2.25" Weight 185.00 lb BMI (Body Mass Index) 33.6 kg/m2 02/10/2019 12:48pm BP Systolic 120 mmHg BP Diastolic 78 mmHg Heart Rate 80 /min Body Temperature 97.9 F Respiratory Rate 16 /min Height 62.25 inches 5'2.25" Weight 194.00 lb BMI (Body Mass Index) 35.2 kg/m2 07/16/2018 3:09pm BP Systolic 138 mmHg BP Diastolic 88 mmHg Heart Rate 92 /min Body Temperature 98.4 F Respiratory Rate 16 /min Height 62.25 inches 5'2.25" Weight 201.38 lb BMI (Body Mass Index) 36.5 kg/m2 01/07/2018 12:53pm BP Systolic 142 mmHg BP Diastolic 64 mmHg Heart Rate 80 /min Body Temperature 97.7 F Respiratory Rate 16 /min Height 62.25 inches 5'2.25" Weight 203.00 lb BMI (Body Mass Index) 36.8 kg/m2 11/05/2017 3:57pm BP Systolic 118 mmHg BP Diastolic 72 mmHg Heart Rate 108 /min Body Temperature 97.6 F O2 % BldC Oximetry 91 % Height 62 inches 5'2" Weight 204.25 lb BMI (Body Mass Index) 37.4 kg/m2 10/29/2017 2:41pm BP Systolic 130 mmHg BP Diastolic 82 mmHg Heart Rate 94 /min Body Temperature 97.5 F Height 62 inches 5'2" Weight 207.38 lb BMI (Body Mass Index) 37.9 kg/m2 10/15/2017 3:26pm BP Systolic 120 mmHg BP Diastolic 90 mmHg Heart Rate 68 /min Body Temperature 98.6 F Respiratory Rate 18 /min Height 62 inches 5'2" Weight 209.00 lb BMI (Body Mass Index) 38.2 kg/m2 06/12/2017 2:10pm BP Systolic 120 mmHg BP Diastolic 80 mmHg Heart Rate 72 /min Body Temperature 98.3 F Respiratory Rate 18 /min Height 62 inches 5'2" Weight 202.00 lb BMI (Body Mass Index) 36.9 kg/m2 04/15/2017 3:57pm BP Systolic 146 mmHg BP Diastolic 80 mmHg Heart Rate 96 /min Body Temperature 97.9 F Respiratory Rate 18 /min Height 62.5 inches 5'2.50" 01/30/2017 3:08pm BP Systolic 120 mmHg BP Diastolic 70 mmHg Heart Rate 68 /min Body Temperature 98.3 F Respiratory Rate 18 /min Height 62.5 inches 5'2.50" Weight 216.00 lb BMI (Body Mass Index) 38.9 kg/m2 10/09/2016 9:36am BP Systolic 138 mmHg BP Diastolic 84 mmHg Heart Rate 84 /min Body Temperature 97.5 F Respiratory Rate 18 /min Height 62.5 inches 5'2.50" Weight 219.00 lb BMI (Body Mass Index) 39.4 kg/m2 08/27/2016 1:50pm BP Systolic 160 mmHg BP Diastolic 94 mmHg Heart Rate 90 /min Body Temperature 97.4 F Respiratory Rate 16 /min Height 62.5 inches 5'2.50" Weight 220.50 lb BMI (Body Mass Index) 39.7 kg/m2 04/23/2016 12:07pm BP Systolic 152 mmHg BP Diastolic 80 mmHg Heart Rate 96 /min Body Temperature 98.4 F Respiratory Rate 16 /min Height 62.5 inches 5'2.50" Weight 217.25 lb BMI (Body Mass Index) 39.1 kg/m2 03/12/2016 3:59pm BP Systolic 140 mmHg BP Diastolic 80 mmHg Heart Rate 64 /min Body Temperature 97.1 F Respiratory Rate 20 /min Height 62.5 inches 5'2.50" Weight 219.00 lb BMI (Body Mass Index) 39.4 kg/m2 01/25/2016 12:57pm BP Systolic 138 mmHg BP Diastolic 90 mmHg Heart Rate 88 /min Body Temperature 98.5 F Respiratory Rate 18 /min Height 62.5 inches 5'2.50" Weight 226.00 lb BMI (Body Mass Index) 40.7 kg/m2 01/18/2016 1:49pm BP Systolic 130 mmHg BP Diastolic 90 mmHg Heart Rate 76 /min Body Temperature 98.0 F Respiratory Rate 18 /min Height 62.5 inches 5'2.50" Weight 226.00 lb BMI (Body Mass Index) 40.7 kg/m2 12/28/2015 12:55pm BP Systolic 160 mmHg BP Diastolic 86 mmHg Heart Rate 84 /min Body Temperature 98.1 F Respiratory Rate 24 /min Height 62.5 inches 5'2.50" Weight 226.00 lb BMI (Body Mass Index) 40.7 kg/m2 11/25/2015 11:55am BP Systolic 120 mmHg BP Diastolic 88 mmHg Heart Rate 76 /min Body Temperature 98.2 F Respiratory Rate 18 /min Height 62.5 inches 5'2.50" Weight 223.00 lb BMI (Body Mass Index) 40.1 kg/m2 08/18/2015 1:03pm BP Systolic 124 mmHg BP Diastolic 70 mmHg Heart Rate 84 /min Body Temperature 97.7 F Respiratory Rate 16 /min Height 62.5 inches 5'2.50" 08/12/2015 11:22am BP Systolic 124 mmHg BP Diastolic 80 mmHg Heart Rate 82 /min Body Temperature 97.4 F Respiratory Rate 20 /min Height 62.5 inches 5'2.50" Weight 221.00 lb BMI (Body Mass Index) 39.8 kg/m2 08/20/2014 9:53am BP Systolic 160 mmHg BP Diastolic 88 mmHg Heart Rate 96 /min Body Temperature 97.4 F Respiratory Rate 16 /min Height 62.5 inches 5'2.50" Weight 227.38 lb BMI (Body Mass Index) 40.9 kg/m2 05/18/2014 3:04pm BP Systolic 170 mmHg BP Diastolic 110 mmHg Heart Rate 88 /min Body Temperature 98.1 F Respiratory Rate 20 /min Height 62.5 inches 5'2.50" measured Weight 232.00 lb BMI (Body Mass Index) 41.8 kg/m2 03/15/2014 7:38pm BP Systolic 148 mmHg BP Diastolic 96 mmHg Heart Rate 84 /min Body Temperature 97.8 F Respiratory Rate 16 /min Height 62.5 inches 5'2.50" measured Weight 230.38 lb BMI (Body Mass Index) 41.5 kg/m2 10/12/2013 6:30pm BP Systolic 148 mmHg BP Diastolic 94 mmHg Heart Rate 90 /min Body Temperature 97.4 F Respiratory Rate 16 /min Height 62.5 inches 5'2.50" measured Weight 222.12 lb BMI (Body Mass Index) 40.0 kg/m2 03/24/2013 3:15pm BP Systolic 136 mmHg BP Diastolic 74 mmHg Heart Rate 84 /min Body Temperature 99.0 F Respiratory Rate 18 /min Height 62.5 inches 5'2.50" measured Weight 223.25 lb BMI (Body Mass Index) 40.2 kg/m2 10/29/2012 9:30am BP Systolic 126 mmHg BP Diastolic 66 mmHg Heart Rate 96 /min Body Temperature 97.4 F Height 62.5 inches 5'2.50" measured Weight 224.00 lb BMI (Body Mass Index) 40.3 kg/m2 06/24/2012 1:03pm BP Systolic 122 mmHg BP Diastolic 82 mmHg Heart Rate 96 /min Height 62.5 inches 5'2.50" measured Weight 220.00 lb BMI (Body Mass Index) 39.6 kg/m2 04/07/2012 12:10pm BP Systolic 130 mmHg BP Diastolic 78 mmHg Heart Rate 84 /min Body Temperature 97.6 F Height 62.5 inches 5'2.50" measured Weight 223.00 lb BMI (Body Mass Index) 40.1 kg/m2 03/03/2012 2:01pm BP Systolic 146 mmHg BP Diastolic 80 mmHg Heart Rate 84 /min Body Temperature 98.0 F Height 63 inches 5'3" Weight 229.00 lb BMI (Body Mass Index) 40.6 kg/m2 10/22/2011 8:07pm BP Systolic 138 mmHg BP Diastolic 80 mmHg Heart Rate 90 /min Body Temperature 98.9 F Height 63 inches 5'3" Weight 229.00 lb BMI (Body Mass Index) 40.6 kg/m2 06/25/2011 1:13pm BP Systolic 140 mmHg BP Diastolic 80 mmHg Heart Rate 78 /min Body Temperature 97.1 F Respiratory Rate 20 /min Height 63 inches 5'3" Weight 224.00 lb BMI (Body Mass Index) 39.7 kg/m2 02/19/2011 1:04pm BP Systolic 118 mmHg BP Diastolic 70 mmHg Heart Rate 100 /min Body Temperature 97.7 F Respiratory Rate 22 /min Height 63 inches 5'3" Weight 232.00 lb BMI (Body Mass Index) 41.1 kg/m2 08/21/2010 12:41pm BP Systolic 120 mmHg BP Diastolic 70 mmHg Heart Rate 80 /min Body Temperature 98.4 F Height 63 inches 5'3" Weight 219.00 lb BMI (Body Mass Index) 38.8 kg/m2 05/10/2010 8:53am BP Systolic 120 mmHg BP Diastolic 80 mmHg Heart Rate 84 /min Body Temperature 97.6 F Respiratory Rate 20 /min Weight 213.00 lb 04/19/2010 9:22am BP Systolic 130 mmHg BP Diastolic 90 mmHg Heart Rate 80 /min Body Temperature 97.7 F Respiratory Rate 24 /min Weight 219.00 lb 01/02/2010 3:17pm BP Systolic 138 mmHg BP Diastolic 90 mmHg Heart Rate 88 /min Weight 215.00 lb 08/10/2009 10:46am BP Systolic 132 mmHg BP Diastolic 80 mmHg Heart Rate 88 /min Height 63 inches 5'3" Weight 211.00 lb BMI (Body Mass Index) 37.4 kg/m2 06/09/2009 11:24am BP Systolic 120 mmHg BP Diastolic 80 mmHg Heart Rate 100 /min Body Temperature 98.5 F Weight 211.00 lb 03/07/2009 3:22pm BP Systolic 134 mmHg BP Diastolic 90 mmHg Heart Rate 88 /min Respiratory Rate 20 /min Height 63 inches 5'3" Weight 210.00 lb BMI (Body Mass Index) 37.2 kg/m2 02/10/2009 2:53pm BP Systolic 104 mmHg BP Diastolic 80 mmHg Heart Rate 90 /min Weight 205.00 lb 11/15/2008 4:38pm BP Systolic 110 mmHg BP Diastolic 60 mmHg Heart Rate 88 /min Body Temperature 98.0 F Height 63 inches 5'3" Weight 194.00 lb BMI (Body Mass Index) 34.4 kg/m2 08/11/2008 1:22pm BP Systolic 128 mmHg BP Diastolic 82 mmHg Heart Rate 76 /min Height 63 inches 5'3" Weight 192.00 lb BMI (Body Mass Index) 34.0 kg/m2 05/06/2008 2:48pm BP Systolic 130 mmHg BP Diastolic 90 mmHg Heart Rate 88 /min Height 63 inches 5'3" Weight 192.00 lb BMI (Body Mass Index) 34.0 kg/m2 04/06/2008 4:02pm BP Systolic 120 mmHg BP Diastolic 80 mmHg Body Temperature 98.3 F Height 63 inches 5'3" Weight 192.00 lb BMI (Body Mass Index) 34.0 kg/m2 03/04/2008 1:42pm BP Systolic 102 mmHg BP Diastolic 70 mmHg Heart Rate 68 /min Height 63 inches 5'3" Weight 190.00 lb BMI (Body Mass Index) 33.7 kg/m2 12/03/2007 3:20pm BP Systolic 122 mmHg BP Diastolic 88 mmHg Heart Rate 72 /min Body Temperature 97.7 F Respiratory Rate 16 /min Height 63 inches 5'3" Weight 196.00 lb BMI (Body Mass Index) 34.7 kg/m2 09/17/2007 6:38pm BP Systolic 142 mmHg BP Diastolic 86 mmHg BP Systolic Recheck 138 mmHg BP Diastolic Recheck 86 mmHg Heart Rate 86 /min Respiratory Rate 14 /min Height 63 inches 5'3" 09/03/2007 4:41pm BP Systolic 152 mmHg BP Diastolic 100 mmHg Heart Rate 96 /min Body Temperature 99.0 F Height 63 inches 5'3" Weight 210.00 lb BMI (Body Mass Index) 37.2 kg/m2 07/24/2007 3:40pm BP Systolic 128 mmHg BP Diastolic 82 mmHg Heart Rate 78 /min Body Temperature 98.8 F Height 63 inches 5'3" Weight 208.00 lb BMI (Body Mass Index) 36.8 kg/m2 07/17/2007 5:00pm BP Systolic 140 mmHg BP Diastolic 90 mmHg Heart Rate 76 /min Height 63 inches 5'3" Weight 205.00 lb BMI (Body Mass Index) 36.3 kg/m2 07/11/2007 3:50pm BP Systolic 154 mmHg BP Diastolic 94 mmHg Heart Rate 88 /min Height 63 inches 5'3" Weight 210.00 lb BMI (Body Mass Index) 37.2 kg/m2 07/02/2007 1:59pm BP Systolic 138 mmHg BP Diastolic 88 mmHg Heart Rate 80 /min Body Temperature 98.5 F Height 63 inches 5'3" Weight 213.00 lb BMI (Body Mass Index) 37.7 kg/m2 04/22/2007 10:23am BP Systolic 150 mmHg BP Diastolic 100 mmHg Heart Rate 68 /min Body Temperature 98.6 F Height 63 inches 5'3" Weight 220.00 lb BMI (Body Mass Index) 39.0 kg/m2 03/28/2007 9:13am BP Systolic 140 mmHg BP Diastolic 80 mmHg Heart Rate 96 /min Body Temperature 98.5 F Height 63 inches 5'3" Weight 217.00 lb BMI (Body Mass Index) 38.4 kg/m2 Right Visual Acuity Distance 20/25 Corrected Left Visual Acuity Distance 20/25 Corrected 01/24/2007 4:06pm BP Systolic 140 mmHg BP Diastolic 90 mmHg Heart Rate 80 /min Weight 228.00 lb 12/20/2006 3:01pm BP Systolic 118 mmHg BP Diastolic 70 mmHg 12/06/2006 1:19pm BP Systolic 118 mmHg LG Cuff BP Diastolic 84 mmHg LG Cuff Heart Rate 80 /min Body Temperature 96.7 F Weight 216.00 lb 09/20/2006 1:42pm BP Systolic 148 mmHg BP Diastolic 90 mmHg Heart Rate 78 /min Weight 212.00 lb 06/14/2006 2:28pm BP Systolic 132 mmHg BP Diastolic 80 mmHg Heart Rate 82 /min Weight 210.00 lb Results Test Date Facility Test Result H/L Range Note CBC Auto Diff 05/06/2019 [facility] [place] White Blood Count 5.5 10^3/uL N 3.5-10.8 Red Blood Count 3.80 10^6/uL N 3.70-4.87 Hemoglobin 11.9 g/dL Low 12.0-16.0 Hematocrit 35 % N 35-47 Mean Corpuscular Volume 93 fL N 80-97 Mean Corpuscular Hemoglobin 31 pg N 27-31 Mean Corpuscular HGB Conc 34 g/dL N 31-36 Red Cell Distribution Width 15 % N 10-15 Platelet Count 298 10^3/uL N 150-450 Mean Platelet Volume 6.2 fL Low 7.4-10.4 Abs Neutrophils 3.5 10^3/uL N 1.5-7.7 Abs Lymphocytes 1.2 10^3/uL N 1.0-4.8 Abs Monocytes 0.5 10^3/uL N 0-0.8 Abs Eosinophils 0.4 10^3/uL N 0-0.6 Abs Basophils 0.0 10^3/uL N 0-0.2 Abs Nucleated RBC 0.0 10^3/uL Granulocyte % 63.0 % Lymphocyte % 20.9 % Monocyte % 8.8 % Eosinophil % 6.6 % Basophil % 0.7 % Nucleated Red Blood Cells % 0.0 Comp Metabolic Panel 05/06/2019 [facility] [place] Sodium 138 mmol/L N 135-145 Potassium 4.6 mmol/L N 3.5-5.0 Chloride 106 mmol/L N 101-111 Co2 Carbon Dioxide 23 mmol/L N 22-32 Anion Gap 9 mmol/L N 2-11 Glucose 153 mg/dL High 70-100 Blood Urea Nitrogen 27 mg/dL High 6-24 Creatinine 2.37 mg/dL High 0.51-0.95 BUN/Creatinine Ratio 11.4 N 8-20 Calcium 9.2 mg/dL N 8.6-10.3 Total Protein 7.1 g/dL N 6.4-8.9 Albumin 4.3 g/dL N 3.2-5.2 Globulin 2.8 g/dL N 2-4 Albumin/Globulin Ratio 1.5 N 1-3 Total Bilirubin 0.30 mg/dL N 0.2-1.0 Alkaline Phosphatase 88 U/L N 34-104 Alt 14 U/L N 7-52 Ast 15 U/L N 13-39 Egfr Non- 20.3 >60 Egfr 24.5 >60 1 Laboratory test finding 05/06/2019 [facility] [place] C Reactive Protein 32.01 mg/L High <8.01 CBC Auto Diff 03/25/2019 [facility] [place] White Blood Count 5.0 10^3/uL N 3.5-10.8 Red Blood Count 3.80 10^6/uL N 3.70-4.87 Hemoglobin 12.0 g/dL N 12.0-16.0 Hematocrit 36 % N 35-47 Mean Corpuscular Volume 95 fL N 80-97 Mean Corpuscular Hemoglobin 32 pg High 27-31 Mean Corpuscular HGB Conc 33 g/dL N 31-36 Red Cell Distribution Width 15 % N 10.5-15 Platelet Count 262 10^3/uL N 150-450 Mean Platelet Volume 6.8 fL Low 7.4-10.4 Abs Neutrophils 3.4 10^3/uL N 1.5-7.7 Abs Lymphocytes 0.9 10^3/uL Low 1.0-4.8 Abs Monocytes 0.5 10^3/uL N 0-0.8 Abs Eosinophils 0.2 10^3/uL N 0-0.6 Abs Basophils 0.0 10^3/uL N 0-0.2 Abs Nucleated RBC 0.0 10^3/uL Granulocyte % 68.5 % Lymphocyte % 17.9 % Monocyte % 9.2 % Eosinophil % 3.8 % Basophil % 0.6 % Nucleated Red Blood Cells % 0.0 Laboratory test finding 03/25/2019 [facility] [place] Lactic Acid 0.4 mmol/L Low 0.5- 2.0 2 Comp Metabolic Panel 03/25/2019 [facility] Sodium 140 mmol/L N 135-145 Potassium 4.6 mmol/L N 3.5-5.0 Chloride 107 mmol/L N 101-111 Co2 Carbon Dioxide 28 mmol/L N 22-32 Anion Gap 5 mmol/L N 2-11 Glucose 93 mg/dL N 70-100 Blood Urea Nitrogen 17 mg/dL N 6-24 Creatinine 1.96 mg/dL High 0.51-0.95 BUN/Creatinine Ratio 8.7 N 8-20 Calcium 9.3 mg/dL N 8.6-10.3 Total Protein 6.8 g/dL N 6.4-8.9 Albumin 4.2 g/dL N 3.2-5.2 Globulin 2.6 g/dL N 2-4 Albumin/Globulin Ratio 1.6 N 1-3 Total Bilirubin 0.30 mg/dL N 0.2-1.0 Alkaline Phosphatase 81 U/L N 34-104 Alt 10 U/L N 7-52 Ast 14 U/L N 13-39 Egfr Non- 25.2 >60 Egfr 30.5 >60 3 Laboratory test finding 03/25/2019 [facility] Magnesium 2.2 mg/dL N 1.9-2.7 Creatine Kinase(CK) 69 U/L N 10-223 Troponin I 0.01 ng/mL <0.04 4 C Reactive Protein 11.09 mg/L High <8.01 Alcohol < 10 mg/dL N <10 TSH (Thyroid Stim Horm) 1.03 mcIU/mL N 0.34-5.60 Laboratory test finding 07/16/2018 [facility]) TSH 5.96 mIU/L 0.50-6.00 Free T4 0.66 ng/dL Low 0.75-1.54 5 Free T3 2.02 pg/mL 2.00-4.90 Laboratory test 01/07/2018 [employer] [facility] SEE IMAGE finding [address] REPORT [place], [place] [id number] [phone] Influenza A&B-fma 11/05/2017 [facility] Influenza A neg (607)- - Influenza B neg Laboratory test 10/29/2017 [facility] Sedimentation Rate 18mm finding (607)- - CBC Electronic (Fma) 10/29/2017 [facility] Medicine WBC 7.3 3.6-9.6 (607)- - RBC 3.69 Low 3.90-5.70 Hemoglobin (Fma/CMC/CTX) 11.6 g/dL Low 12.1 - 17.2 Hematocrit (Fma/CMC/CTX) 34.9 % Low 36.1 - 50.3 Platelets 318 10^3/ul 150-400 Lymph% 16.7 % Low 17.0-48.0 Mixed% 4.6 Neutrophils % 78.7 Mean Corpuscular Vol 95 82.2-97.4 Mean Corpuscular Hemoglobin 31.4 27.6-33.3 Mean Corpuscular Hemo Concen 33.2 32.0-36.0 RDW 15.3 High 11.6-13.7 Mean Platelet Volume 6.1 5.5-11.0 Comprehensive Metabolic 10/29/2017 Torito Selma(fma) Sodium 134 mEq/L 134-149 Prof Potassium 4.4 mEq/L 3.6-5.5 Chloride 104 mEq/L 94-112 Carbon Dioxide 20 mEq/L Low 21-32 6 Glucose 104 mg/dL 70-105 BUN 22 mg/dL 6-26 Creatinine 1.8 mg/dL High 0.6-1.4 7 BUN/Creat Ratio 12.2 CALC 8.0-36.0 Calcium 9.0 mg/dL 8.6-10.2 Total Protein 6.9 g/dL 6.4-8.3 Albumin 4.4 g/dL 3.8-5.5 Globulin 2.5 g/dL 2.0-4.8 A/G Ratio 1.8 CALC 0.6-2.3 Alk. Phosphatase 100 U/L 30-110 Alt (SGPT) 19 U/L 7-35 Ast (Sgot) 19 U/L 5-34 Total Bilirubin 0.3 mg/dL 0.2-1.3 GFR Non- 30 ml/min/1.73m^ Low >=60 GFR 36 ml/min/1.73m^ Low >=60 Laboratory test 10/15/2017 Torito Hahn(fma) Free T4 0.90 ng/dL 0.75- 1.54 finding Free T3 1.77 pg/mL Low 2.00-4.90 8 TSH 5.12 mIU/L 0.50-6.00 Influenza A&B-fma 10/15/2017 [facility] Influenza A neg (607)- - Influenza B neg Laboratory test finding 06/07/2017 [facility]) TSH 5.06 mIU/L 0.50-6.00 Free T4 0.69 ng/dL Low 0.75-1.54 9 Lipid Profile 06/07/2017 [facility] Fl[facility]) Cholesterol 208 mg/dL High 120-200 Triglycerides 42 mg/dL 30-200 HDL Cholesterol 79 mg/dL 30-85 LDL (Calculated) 121 CALC 0-129 VLDL Cholesterol 8 mg/dL 0-50 HDL Risk Factor 2.6 CALC 0.0-4.4 Laboratory test 06/07/2017 [facility] Flora([facility]) Vitamin D25 68 30-100 finding Complete Blood Count 06/07/2017 [facility] Flora([facility]) WBC 5.7 3.6-9.6 x10^3/UL RBC 4.07 x10^6/UL 3.90-5.70 HGB 12.8 g/dL 12.1-17.2 HCT 38 % 36-50 MCV 93.0 fL 82.2-97.4 MCH 31.5 pg 27.6-33.3 MCHC 34.0 g/dL 33.0-35.5 RDW 15.4 % High 11.6-13.7 PLT 348 x10^3/UL 150-400 MPV 6.2 fL Low 7.4-10.4 Gran # 4.0 x10^3/UL 1.5-7.2 Lymph# 1.4 x10^3/UL 0.7-4.9 [place]# 0.3 x10^3/UL 0.1-0.9 Gran % 69.0 % 42.2-75.2 Lymph % 25.2 % 20.5-51.1 [place]% 5.8 % 1.7-9.3 Comprehensive Metabolic 06/07/2017 [facility] Flora([facility]) Sodium 140 mEq/L 134-149 Prof Potassium 4.4 mEq/L 3.6-5.5 Chloride 101 mEq/L 94-112 Carbon Dioxide 24 mEq/L 21-32 Glucose 94 mg/dL 70-105 BUN 20 mg/dL 6-26 Creatinine 1.8 mg/dL High 0.6-1.4 10 BUN/Creat Ratio 11.1 CALC 8.0-36.0 Calcium 9.1 mg/dL 8.6-10.2 Total Protein 6.7 g/dL 6.4-8.3 Albumin 4.4 g/dL 3.8-5.5 Globulin 2.3 g/dL 2.0-4.8 A/G Ratio 1.9 CALC 0.6-2.3 Alk. Phosphatase 104 U/L 30-110 Alt (SGPT) 17 U/L 7-35 Ast (Sgot) 17 U/L 5-34 Total Bilirubin 0.3 mg/dL 0.2-1.3 GFR Non- 30 ml/min/1.73m^ Low >=60 GFR 36 ml/min/1.73m^ Low >=60 Influenza A&B-fma 01/30/2017 [facility] Influenza A neg (607)- - Influenza B neg Basic Metabolic Profile 08/27/2016 [facility](a) Sodium 138 mEq/L 134-149 Potassium 4.9 mEq/L 3.6-5.5 Chloride 98 mEq/L 94-112 Carbon Dioxide 24 mEq/L 21-32 Glucose 86 mg/dL 70-105 BUN 25 mg/dL 6-26 Creatinine 1.6 mg/dL High 0.6-1.4 11 BUN/Creat Ratio 15.6 CALC 8.0-36.0 Calcium 8.7 mg/dL 8.6-10.2 GFR Non- 34 ml/min/1.73m^ Low >=60 GFR 41 ml/min/1.73m^ Low >=60 Ict Hemoccult (Fma) 04/09/2016 [facility] Ict Hemoccult (1) 02/25/16 neg (607)- - Ict Hemoccult-(2) 02/28/16 neg Ict-Hemoccult (3) 03/01/16 neg Comprehensive Metabolic 12/28/2015 Ugarte Selma(a) Sodium 135 mEq/L 134-149 Prof Potassium 3.9 mEq/L 3.6-5.5 Chloride 103 mEq/L 94-112 Carbon Dioxide 28 mEq/L 21-32 Glucose 76 mg/dL 70-105 BUN 37 mg/dL High 6-26 12 Creatinine 1.7 mg/dL High 0.6-1.4 13 BUN/Creat Ratio 21.8 CALC 8.0-36.0 Calcium 8.8 mg/dL 8.6-10.2 Total Protein 7.0 g/dL 6.4-8.3 Albumin 4.6 g/dL 3.8-5.5 Globulin 2.4 g/dL 2.0-4.8 A/G Ratio 1.9 CALC 0.6-2.3 Alk. Phosphatase 86 U/L 30-110 Alt (SGPT) 24 U/L 7-35 Ast (Sgot) 17 U/L 5-34 Total Bilirubin 0.3 mg/dL 0.2-1.3 GFR Non- 32 ml/min/1.73m^ Low >=60 GFR 39 ml/min/1.73m^ Low >=60 Lipid Profile 12/28/2015 Torito Selma(a) Cholesterol 218 mg/dL High 120-200 Triglycerides 76 mg/dL 30-200 HDL Cholesterol 68 mg/dL 30-85 LDL (Calculated) 135 CALC High 0-129 VLDL Cholesterol 15 mg/dL 0-50 HDL Risk Factor 3.2 CALC 0.0-4.4 Laboratory test finding 12/28/2015 Torito Hahn([facility]) TSH 1.64 mIU/L 0.50-6.00 14 Free T4 0.82 ng/dL 0.75-1.54 CBC Electronic ([facility]) 12/28/2015 [facility] WBC 11.4 High 3.6-9.6 (607)- - RBC 4.07 3.90-5.70 Hemoglobin (Fma/CMC/CTX) 13.1 g/dL 12.1 - 17.2 Hematocrit (Fma/CMC/CTX) 39.5 % 36.1 - 50.3 Platelets 326 10^3/ul 150-400 Lymph% 18.1 % 17.0-48.0 Mixed% 4.4 Neutrophils % 77.5 Mean Corpuscular Vol 97 82.2-97.4 Mean Corpuscular Hemoglobin 32.3 27.6-33.3 Mean Corpuscular Hemo Concen 33.3 32.0-36.0 RDW 14.9 High 11.6-13.7 Mean Platelet Volume 6.2 5.5-11.0 Laboratory test 08/12/2015 [facility](a) Vitamin D25 112 High 30- 100 15 finding TSH 0.08 mIU/L Low 0.50-6.00 16 Free T4 1.23 ng/dL 0.75-1.54 Laboratory test 08/12/2015 [facility] Hemoglobin A1c 5.1 % 4.1-5.7 finding (607)- - (Fma/CMC,CX) CBC Electronic 07/15/2015 [facility] WBC 5.7 3.6-9.6 (a) (607)- - RBC 3.99 3.90-5.70 Hemoglobin (Fma/CMC/CTX) 12.9 g/dL 12.1 - 17.2 Hematocrit (Fma/CMC/CTX) 38.4 % 36.1 - 50.3 Platelets 308 10^3/ul 150-400 Lymph% 27.6 % 17.0-48.0 Mixed% 4.7 Neutrophils % 67.7 Mean Corpuscular Vol 96 82.2-97.4 Mean Corpuscular Hemoglobin 32.4 27.6-33.3 Mean Corpuscular Hemo Concen 33.7 32.0-36.0 RDW 14.5 High 11.6-13.7 Mean Platelet Volume 6.0 5.5-11.0 Laboratory test 07/15/2015 [facility] Sed Rate 18 mm finding (607)- - (Fma/CMC/[facility]) Comprehensive 07/15/2015 [facility]e Selma(fma) Sodium 136 mEq/L 134-1 Metabolic Prof 49 Potassium 4.0 mEq/L 3.6-5.5 Chloride 104 mEq/L 94-112 Carbon Dioxide 24 mEq/L 21-32 Glucose 102 mg/dL 70-105 BUN 29 mg/dL High 6-26 17 Creatinine 1.7 mg/dL High 0.6-1.4 18 BUN/Creat Ratio 17.1 CALC 8.0-36.0 Calcium 8.8 mg/dL 8.6-10.2 Total Protein 7.2 g/dL 6.4-8.3 Albumin 4.5 g/dL 3.8-5.5 Globulin 2.7 g/dL 2.0-4.8 A/G Ratio 1.7 CALC 0.6-2.3 Alk. Phosphatase 89 U/L 30-110 Alt (SGPT) 17 U/L 7-35 Ast (Sgot) 19 U/L 5-34 Total Bilirubin 0.2 mg/dL 0.2-1.3 GFR Non- 32 ml/min/1.73m^ Low >=60 GFR 39 ml/min/1.73m^ Low >=60 Lyme Western Blot 07/15/2015 [facility] [place] Lyme Disease IgG Ab WB Negative N Negative Lyme Disease IgG Bands Present p41, kDa N Lyme Disease IgM Ab WB Negative N Negative Lyme Disease IgM Bands Present No bands detecte <SEE NOTE> kDa N 19 Lyme Disease Interpretation See Comment N 20 Ehrlichia Igg/Igm Ifa 07/15/2015 [facility] [place] Anaplasma phagocytophila <1:64 titer N <1:64 21 IgG Ehrlichia chaffeensis IgG AB <1:64 titer N <1:64 22 Laboratory test 07/15/2015 [facility] [place] Babesiosis <1:64 titer N <1:64 23 finding Evaluation Laboratory test 08/20/2014 [facility] Hemoglobin A1c 5.2 % 4.1-5.7 finding (607)- - (Fma/CMC,CX) Basic Metabolic 08/20/2014 Torito Hahn([facility]) Sodium 137 mEq/L 134-149 Profile Potassium 4.2 mEq/L 3.6-5.5 Chloride 103 mEq/L 94-112 Carbon Dioxide 24 mEq/L 21-32 Glucose 99 mg/dL 70-105 BUN 24 mg/dL 6-26 Creatinine 1.9 mg/dL High 0.6-1.4 24 BUN/Creat Ratio 12.6 CALC 8.0-36.0 Calcium 9.9 mg/dL 8.6-10.2 Complete Blood Count 08/20/2014 Ugarte Selma(fma) WBC 7.2 x10^3/UL 3.6 -9.6 RBC 3.86 x10^6/UL Low 3.90-5.70 HGB 12.5 g/dL 12.1-17.2 HCT 36 % 36-50 MCV 94.0 fL 82.2-97.4 MCH 32.3 pg 27.6-33.3 MCHC 34.3 g/dL 33.0-35.5 RDW 12.5 % 11.6-13.7 PLT 315 x10^3/UL 150-400 MPV 6.5 fL Low 7.4-10.4 Gran # 5.6 x10^3/UL 1.5-7.2 Lymph# 1.2 x10^3/UL 0.7-4.9 [place]# 0.4 x10^3/UL 0.1-0.9 Gran % 77.4 % High 42.2-75.2 Lymph % 16.6 % Low 20.5-51.1 [place]% 6.0 % 1.7-9.3 Laboratory test 08/20/2014 [facility] Selma(a) TSH 6.95 mIU/L High 0.50- 6.00 25 finding Laboratory test 08/20/2014 [facility] Hemoglobin A1c 5.2 % 4.1-5.7 finding (607)- - (a/[facility] [place],CX) Laboratory test 04/07/2014 Ugarte Selma(a) Free T3 2.33 pg/mL 2.00- 4.90 finding Free T4 0.79 ng/dL 0.75-1.54 Basic Metabolic Profile 04/07/2014 [facility] Selma(a) Sodium 135 mEq/L 134-149 Potassium 5.0 mEq/L 3.6-5.5 Chloride 107 mEq/L 94-112 Carbon Dioxide 23 mEq/L 21-32 Glucose 101 mg/dL 70-105 BUN 18 mg/dL 6-26 Creatinine 2.2 mg/dL High 0.6-1.4 26 BUN/Creat Ratio 8.2 CALC 8.0-36.0 Calcium 9.0 mg/dL 8.6-10.2 Laboratory test 04/07/2014 [facility] Selma(a) TSH 2.81 mIU/L 0.50-6.00 finding Laboratory test 04/07/2014 [facility] Hemoglobin A1c 5.2% % 4.1- 5.7 finding (607)- - (a/[facility] [place],CX) Laboratory test 10/12/2013 [facility] Selma(a) Free T3 2.22 pg/mL 2.00- 4.90 finding Free T4 0.75 ng/dL 0.75-1.54 Comprehensive Metabolic 10/12/2013 [facility]gart[facility] Selma(a) Albumin 4.7 g/dL 3.8-5.5 Prof Alk. Phos. 104 U/L 30-110 Alt (SGPT) 16 U/L 7-35 Ast (Sgot) 18 U/L 5-34 BUN 25 mg/dL 6-26 Calcium 9.0 mg/dL 8.6-10.2 Chloride 99 mEq/L 94-112 Creatinine 2.0 mg/dL High 0.6-1.4 Carbon Dioxide 21 mEq/L 21-32 Glucose 89 mg/dL 70-105 Sodium 136 mEq/L 134-149 Total Bilirubin 0.2 mg/dL 0.2-1.3 Total Protein 7.1 g/dL 6.3-8.1 Potassium 4.3 mEq/L 3.6-5.5 Globulin 2.4 g/dL 2.0-4.8 A/G Ratio 2.0 Calc 0.6-2.3 BUN/Creat Ratio 12.7 Calc 8.0-36.0 Laboratory test 10/12/2013 Tor[facility] Selma(fma) TSH 1.08 mIU/L 0.50-6.00 finding Comprehensive 03/24/2013 Torito Selma(fma) Albumin 4.7 g/dL 3.8-5.5 Metabolic Prof Alk. Phos. 99 U/L 30-110 Alt (SGPT) 17 U/L 7-35 Ast (Sgot) 18 U/L 5-34 BUN 23 mg/dL 6-26 Calcium 9.2 mg/dL 8.6-10.2 Chloride 97 mEq/L 94-112 Creatinine 2.0 mg/dL High 0.6-1.4 27 Carbon Dioxide 23 mEq/L 21-32 Glucose 102 mg/dL 70-105 Sodium 133 mEq/L Low 134-149 28 Total Bilirubin 0.3 mg/dL 0.2-1.3 Total Protein 6.7 g/dL 6.3-8.1 Potassium 4.7 mEq/L 3.6-5.5 Globulin 2.0 g/dL 2.0-4.8 A/G Ratio 2.3 Calc 0.6-2.3 BUN/Creat Ratio 11.8 Calc 8.0-36.0 Laboratory test 03/24/2013 [facility] Selma(fma) Free T4 0.84 ng/dL 0.75- 1.54 finding TSH 0.61 mIU/L 0.50-6.00 Laboratory test 03/24/2013 [facility] Medicine Hemoglobin A1c 5.3 % 4.1-5.7 finding (607)- - (Fma/CMC,CX) Urinalysis W/ 03/24/2013 [facility] Urine Color YELLOW Yellow 29 Micro (CX) [address] [place], [place] [id number] [phone] Urine Appearance CLEAR Clear Urine Specific Gordon 1.005 1.005-1.030 Urine Leukocytes TRACE Abnormal Negative Urine Nitrite NEGATIVE Negative Urine PH 5.0 5.0-8.0 Urine Protein NEGATIVE mg/dL Negative Urine Glucose NEGATIVE mg/dL Negative Urine Ketones NEGATIVE mg/dL Negative Urine Urobilinogen NORMAL mg/dL NORMALor<1 Urine Bilirubin NEGATIVE Negative Urine Occult Blood NEGATIVE Negative WBC <1 /hpf 0-5 RBC <1 /hpf 0-3 Epithelial Cells <1 /hpf Mucous Threads TRACE /lpf <1+ Laboratory test 03/24/2013 [facility] Urine Culture No significant g 30 finding [address] [facility] <SEE NOTE> [place] [address] [phone] Vitamin D, 25 Oh 35.0 ng/mL 30.0-100.0 31 Umixd 03/24/2013 [facility] Microscopic, INDICATED [address] [facility] [place] [address] [phone] Laboratory test 10/29/2012 [facility] Hemoglobin A1c 5.2 % 4.1-5 finding (607)- - (Fma/CMC,CX) .7 Basic Metabolic 10/29/2012 [facility] Selma(fma) BUN 21 mg/dL 6-26 Profile Calcium 8.6 mg/dL 8.6-10.2 Chloride 104 mEq/L 94-112 Creatinine 1.8 mg/dL High 0.6-1.4 32 Carbon Dioxide 21 mEq/L 21-32 Glucose 108 mg/dL High 70-105 Sodium 136 mEq/L 134-149 Potassium 4.4 mEq/L 3.6-5.5 BUN/Creat Ratio 11.4 Calc 8.0-36.0 Laboratory test 06/24/2012 [facility]garte Selma(fma) Free T3 2.01 pg/mL 2.00- 4.90 finding Basic Metabolic 06/24/2012 [facility]garte Selma(fma) BUN 30 mg/dL High 6-26 Profile Calcium 9.9 mg/dL 8.6-10.2 Chloride 105 mEq/L 94-112 Creatinine 2.0 mg/dL High 0.6-1.4 Carbon Dioxide 22 mEq/L 21-32 Glucose 94 mg/dL 70-105 Sodium 134 mEq/L 134-149 Potassium 4.5 mEq/L 3.6-5.5 BUN/Creat Ratio 14.8 Calc 8.0-36.0 Laboratory test finding 06/24/2012 Torito Selma(a) TSH 3.15 mIU/L 0.50-6.00 Free T4 0.81 ng/dL 0.75-1.54 Ua - Non Micro (Fma) 04/07/2012 [facility] Appearance CLEAR (607)- - Color YELLOW Glucose NEG Bilirubin NEG Ketones NEG SP Grav <=1.005 Blood NEG PH 5.5 Protein NEG Urobil 0.2 Nitrite NEG Leukocytes (Fma/CMC/[facility]) NEG Laboratory 04/07/2012 [facility] Thin Prep SEE 33 test finding [address] W/HPV(Lsil/JOLLY/Asc) [place] [address] [phone] Laboratory 04/02/2012 Torito Selma(a) TSH 4.89 0.5 test finding mIU/L 0-6 .00 Lipid Profile 04/02/2012 Torito Selma(a) Cholesterol 209 High 120 mg/dL -20 0 HDL 48 mg/dL 30-85 Triglycerides 118 mg/dL 30-200 HDL Risk Factor 4.3 CALC High 0.0-4.0 LDL (Calculated) 137 CALC High 0-129 VLDL (Calculated) 24 mg/dL 0-50 Comprehensive Metabolic 10/26/2011 Torito Selma(a) Albumin 4.9 g/dL 3.8-5.5 Prof Alk. Phos. 79 U/L 30-110 Alt (SGPT) 17 U/L 7-35 Ast (Sgot) 19 U/L 5-34 BUN 22 mg/dL 6-26 Calcium 9.4 mg/dL 8.6-10.2 Chloride 102 mEq/L 94-112 Creatinine 2.2 mg/dL High 0.6-1.4 34 Carbon Dioxide 21 mEq/L 21-32 Glucose 101 mg/dL 70-105 Sodium 138 mEq/L 134-149 Total Bilirubin 0.4 mg/dL 0.2-1.3 Total Protein 7.4 g/dL 6.3-8.1 Potassium 4.8 mEq/L 3.6-5.5 Globulin 2.5 g/dL 2.0-4.8 A/G Ratio 1.9 Calc 0.6-2.2 BUN/Creat Ratio 10.0 Calc 8.0-36.0 Comprehensive Metabolic 02/19/2011 [facility](a) Albumin 4.9 g/dL 3.8-5.5 Prof Alk. Phos. 94 U/L 30-110 Alt (SGPT) 22 U/L 7-35 Ast (Sgot) 21 U/L 5-34 BUN 28 mg/dL High 6-26 Calcium 9.8 mg/dL 8.6-10.2 Chloride 107 mEq/L 94-112 Creatinine 2.0 mg/dL High 0.6-1.4 Carbon Dioxide 25 mEq/L 21-32 Glucose 103 mg/dL 70-105 Sodium 142 mEq/L 134-149 Total Bilirubin 0.5 mg/dL 0.2-1.3 Total Protein 7.1 g/dL 6.3-8.1 Potassium 5.0 mEq/L 3.6-5.5 Globulin 2.1 g/dL 2.0-4.8 A/G Ratio 2.3 Calc High 0.6-2.2 BUN/Creat Ratio 13.5 Calc 8.0-36.0 Laboratory test finding 02/19/2011 [facility]gart[facility] Selma(a) TSH 4.40 mIU/L 0.50-6.00 Free T4 0.63 ng/dL Low 0.75-1.54 35 Laboratory test 02/19/2011 [facility] Hemoglobin A1c 5.5 % 4.1-5.7 finding (607)- - (Fma/CMC,CX) CBC Electronic 02/19/2011 [facility] WBC 5.9 3.6-9.6 (a) (607)- - RBC 3.64 Low 3.90-5.70 Hemoglobin (Fma/CMC/CTX) 11.8 g/dL Low 12.1 - 17.2 Hematocrit (Fma/CMC/CTX) 35.4 % Low 36.1 - 50.3 Platelets 286 10^3/ul 150-400 Lymph% 16.4 20.5-51.1 Mixed% 15.7 Neutrophils % 67.9 Mean Corpuscular Vol 97.3 82.2-97.4 Mean Corpuscular Hemoglobin 32.4 27.6-33.3 Mean Corpuscular Hemo Concen 33.3 32.0-36.0 RDW 15.6 High 11.6-13.7 Mean Platelet Volume 9.4 6.5-11.0 Comprehensive Metabolic 05/10/2010 Torito Selma([facility]) Albumin 4.8 g/dL 3.8-5.5 Prof Alk. Phos. 103 U/L 30-110 Alt (SGPT) 24 U/L 7-35 Ast (Sgot) 27 U/L 5-34 BUN 26 mg/dL 6-26 Calcium 9.4 mg/dL 8.6-10.2 Chloride 107 mEq/L 94-112 Creatinine 1.8 mg/dL High 0.6-1.4 36 Carbon Dioxide 24 mEq/L 21-32 Glucose 101 mg/dL 70-105 Sodium 145 mEq/L 134-149 Total Bilirubin 0.3 mg/dL 0.2-1.3 Total Protein 6.8 g/dL 6.3-8.1 Potassium 4.7 mEq/L 3.6-5.5 Globulin 2.0 g/dL 2.0-4.8 A/G Ratio 2.4 Calc High 0.6-2.2 BUN/Creat Ratio 14.3 Calc 8.0-36.0 Lipid Profile 05/10/2010 Torito Selma([facility]) Cholesterol 207 mg/dL High 120-200 HDL 59 mg/dL 30-85 Triglycerides 103 mg/dL 30-200 HDL Risk Factor 3.5 CALC Low 4.2-7.0 LDL (Calculated) 127 CALC 0-129 VLDL (Calculated) 21 mg/dL 0-50 Laboratory test 05/10/2010 Torito Selma([facility]) TSH 6.30 mIU/L High 0.50- 6.00 finding Free T4 0.67 ng/dL Low 0.75-1.54 Free T3 2.24 pg/mL 2.00-4.90 Laboratory test 05/10/2010 [facility] Hemoglobin A1c 5.5 % 4.1-5.7 finding (607)- - (Fma/CMC,CX) CBC (a) 05/10/2010 [facility] Medicine WBC 5.5 3.6-9.6 (607)- - RBC 3.93 3.90-5.70 Hemoglobin (Fma/CMC/CTX) 13.1 g/dL 12.1 - 17.2 Hematocrit (Fma/CMC/CTX) 37.3 % 36.1 - 50.3 Mean Corpuscular Vol 33.3 Low 82.2-97.4 Mean Corpuscular Hemaglobin 35.1 High 27.6-33.3 Mean Corpuscular Hemo Concen 20.1 Low 33.0-36.0 Platelets 241 10^3/ul 150-400 Lymph% 20.1 Low 20.5-51.1 Mixed% 15.4 Neutrophils % 64.5 RDW 16.4 High 11.6-13.7 Mean Platelet Volume 9.1 7.4-10.4 Laboratory test finding 05/11/2009 Torito Hahn([facility]) TSH 3.83 mIU/L 0.50-6.00 37 Free T4 0.75 ng/dL 0.75-1.54 Free T3 2.09 pg/mL 2.00-4.90 Comprehensive Metabolic 05/11/2009 Torito Hahn([facility]) Albumin 4.6 g/dL 3.8-5.5 Prof Alk. Phos. 102 U/L 30-110 Alt (SGPT) 15 U/L 7-35 Ast (Sgot) 25 U/L 5-34 BUN 24 mg/dL 6-26 Calcium 9.1 mg/dL 8.6-10.2 Chloride 108 mEq/L 94-112 Creatinine 1.9 mg/dL High 0.6-1.4 38 Carbon Dioxide 22 mEq/L 21-32 Glucose 85 mg/dL 70-105 Sodium 143 mEq/L 134-149 Total Bilirubin 0.4 mg/dL 0.2-1.3 Total Protein 7.2 g/dL 6.3-8.1 Potassium 5.0 mEq/L 3.6-5.5 Globulin 2.6 g/dL 2.0-4.8 A/G Ratio 1.8 Calc 0.6-2.2 BUN/Creat Ratio 12.8 Calc 8.0-36.0 Lipid Profile 05/11/2009 Torito Hahn([facility]) Cholesterol 254 mg/dL High 120-200 HDL 67 mg/dL 30-85 Triglycerides 119 mg/dL 30-200 HDL Risk Factor 3.8 CALC Low 4.2-7.0 LDL (Calculated) 163 CALC High 0-129 VLDL (Calculated) 24 mg/dL 0-50 Complete Blood Count 05/11/2009 Torito Hahn([facility]) WBC 5.3 x10^3/uL 3.6 -9.6 Gran# 3.4 x10^3/uL 1.5-7.2 Gran% 64.8 % 42.2-75.2 HCT 38 % 36-50 HGB 12.8 g/dL 12.1-17.2 Lymph# 1.4 x10^3/uL 0.7-4.9 Lymph% 27.0 % 20.5-51.1 MCH 32.3 pg 27.6-33.3 MCV 96.8 fL 82.2-97.4 MCHC 33.4 g/dL 33.0-35.5 Mo# 0.4 x10^3/uL 0.1-0.9 Mo% 8.2 % 1.7-9.3 MPV 7.2 fL Low 7.4-10.4 PLT 323 x10^3/uL 150-400 RBC 3.96 x10^6/uL 3.90-5.70 RDW 14.0 % High 11.6-13.7 Laboratory test 03/07/2009 [facility] Hemoglobin A1c 5.4 % 4.1-5.7 finding (607)- - (Fma/CMC,CX) Laboratory test 11/15/2008 Torito Hahn([facility]) Free T4 0.80 0.75-1.54 finding ng/dL Free T3 2.41 pg/mL 2.00-4.90 TSH 4.00 mIU/L 0.50-6.00 Comp Stat 10/14/2008 [facility] Sodium 139 mmol/L 135-145 Potassium 3.8 mmol/L 3.5-5.0 Chloride 108 mmol/L 101-111 Co2 (Carbon Dioxide) 25.0 mmol/L 22-32 Anion Gap 6.0 mmol/L 2-11 39 Glucose 114 mg/dL High 70-100 40 BUN 12 mg/dL 6-24 Creatinine 1.67 mg/dL High 0.50-1.40 One Over Creatinine 0.50 BUN/Creatinine Ratio 7.2 Low 8-20 Calcium 9.6 mg/dL 8.1-9.9 41 Total Protein 7.5 GM/DL 6.2-8.1 Albumin 4.5 GM/DL 3.6-5.4 Globulin 3.0 GM/DL 2-4 Albumin/Globulin Ratio 1.5 1-3 Bilirubin Total 0.3 mg/dL Low 0.4-1.5 Alkaline Phosphatase 88 U/L 30-110 Alt (SGPT) 19 U/L 14-54 Ast (Sgot) 21 U/L 12-42 CBC With Manual Diff Stat 10/14/2008 [facility] White Blood Count 14.3 CUMM High 4.8-10.8 Red Cell Count 3.87 CUMM Low 4.2-5.4 Hemoglobin 12.8 g/dL 12.0-16.0 Hematocrit 36 % 35-47 Mean Corpuscular Volume 94 um3 79-97 Mean Corpuscular Hemoglob 33 pg High 27-31 Mean Corpuscular HGB Cone 35 g/dL 32-36 Redcell Distribution WDTH 14 % 10.5-15 Platelet Count 374 CUMM 150-450 Mean Platelet Volume 6.6 um3 Low 7.4-10.4 Polysegmented Neutrophil 85 % High 38-83 Band Neutrophil 1 % 0-8 Lymphocyte 8 % Low 25-47 Monocyte 4 % 0-13 Atypical Lymph 2 % 0-6 Absolute Neutrophil Count 12.2 RBC Morphology NORMAL Blood Culture 10/14/2008 [facility] Blood Culture [COAG NEG 42, 43 STAPHY <SEE NOTE> Laboratory test 10/14/2008 [facility] Gram Stain GPCCL^GRAM 44 finding Smear POSIT <SEE NOTE> Laboratory test 03/04/2008 Ugarte Selma(fma) Free T3 2.35 pg/mL 2.00- 4 finding .90 Free T4 1.20 ng/dL 0.75-1.54 TSH 0.83 mIU/L 0.50-6.00 Creatine Kinase 43 U/L 26-140 Comprehensive Metabolic 01/17/2008 Ugarte Selma([facility]ma) Albumin 4.1 g/dL 3.8-5.5 45 Prof Alk. Phos. 94 U/L 30-110 Alt (SGPT) 16 U/L 7-35 Ast (Sgot) 18 U/L 5-34 BUN 21 mg/dL 6-26 Calcium 9.9 mg/dL 8.6-10.2 Chloride 106 mEq/L 94-112 Creatinine 2.2 mg/dL High 0.6-1.4 46 Carbon Dioxide 23 mEq/L 21-32 Glucose 87 mg/dL 70-105 Sodium 142 mEq/L 134-149 Total Bilirubin 0.3 mg/dL 0.2-1.3 Total Protein 6.8 g/dL 6.3-8.1 Potassium 4.2 mEq/L 3.6-5.5 Globulin 2.7 g/dL 2.0-4.8 A/G Ratio 1.5 Calc 0.6-2.2 BUN/Creat Ratio 9.8 Calc 8.0-36.0 Laboratory test 01/17/2008 Ugarte Selma([facility]) Free T4 0.96 ng/dL 0.75- 1.54 finding TSH 1.21 mIU/L 0.50-6.00 Free T3 2.49 pg/mL 2.00-4.90 Laboratory test finding 11/17/2007 [facility] BUN 28 mg/dL High 6-24 Creatinine 11/17/2007 [facility] One Over Creatinine 0.47 Creatinine 2.1 mg/dL High 0.5-1.4 Creatinine Clearance 11/17/2007 [facility] Creatinine Random Urine 58.5 mg/dL Serum Creatinine/Creat CL 2.1 mg/dL High 0.5-1.4 Creat Clearance 49 mL/min Low 80-125 Hours Of Collection 24 HR 24- Urine Volume Measurement 2550 ML Ua - Micro (a) 07/24/2007 [facility] Medicine Appearance CLEAR (607)- - Color LT YELLOW Glucose NEG Bilirubin NEG Ketones NEG SP Grav <1.005 Blood TRACE-LYSED PH 5.0 Protein NEG Urobil 0.2 Nitrite NEG Leukocytes (Fma/CMC/[facility]) TRACE Hyaline - /Lpf Granular - /Lpf WBC (Fma,[facility]) 0-2 RBC 0-1 Mucus - /Lpf Epith TRACE /Lpf Bacteria OCC /Hpf Amorphous - /Lpf Crystals, Fluid (Fma/CMC/CTX) - Z#Comments - Laboratory test 07/24/2007 [facility] Urine Culture No growth. finding [address] [place] [address] [phone] Ua - Non Micro 07/17/2007 [facility] Appearance CLOUDY (a) (607)- - Color LT YELLOW Glucose NEG Bilirubin NEG Ketones NEG SP Grav <1.005 Blood 2+ PH 5.0 Protein SSA TRACE Urobil 0.2 Nitrite NEG Leukocytes (Fma/CMC/[facility]) 3+ Laboratory 07/11/2007 [facility] Lyme 0.10 Negative 47 test finding [address] Disease,Igg/[place] [address] [phone] CMV Igg/Igm 07/11/2007 [facility] CMV Ab, IgG <0.9 0.0-0.8 48 [address] (Cytomegalovirus) [place] [address] [phone] CMV Ab, IgM Cytomegalovirus <0.9 index 0.0-0.8 49 Ebv Acute 07/11/2007 [facility] Ebna-1(Nuclear 4.90 AB Negative 50 Infection Abs [address] [facility] Ag),[place] [address] [phone] Ebv AB Vca, Igg 6.94 INDEX AB Negative 51 Ebv AB Vca, Igm 0.01 INDEX Negative 52 Ebv Ea-D(Early Ag),Igg 0.70 INDEX Negative 53 . Ebv Interpretation SEE COMMENT 54 Hepatitis Acute 07/11/2007 [facility] Hep B Surface NEGATIVE Negative Panel [address] Antigen [place], [place] [id number] [phone] Hep C Antibody NEGATIVE Negative Hep B Core Antibody Igm NEGATIVE 55 Hep A Antibody Igm NEGATIVE 56 Laboratory test 07/11/2007 [facility] Monospot (Fma/[facility]) NEGATIVE finding (607)- - Ua - Micro (a) 07/11/2007 [facility] Medicine Appearance CLEAR (607)- - Color LT YELLOW Glucose NEG Bilirubin NEG Ketones NEG SP Grav <=1.005 Blood TRACE-INTACT PH 5.0 Protein NEG Urobil 0.2 Nitrite NEG Leukocytes (Fma/CMC/[facility]) TRACE Hyaline - /Lpf Granular - /Lpf WBC (Fma,[facility]) 6-8 RBC 1-3 Mucus - /Lpf Epith OCC /Lpf Bacteria 1+ /Hpf Amorphous - /Lpf Crystals, Fluid (Fma/CMC/CTX) - Z#Comments - Comprehensive Metabolic 07/02/2007 Ugarte Selma([facility]) Albumin 4.2 g/dL 3.8-5.5 Prof Alk. Phos. 107 U/L 30-110 Alt (SGPT) 25 U/L 7-35 Ast (Sgot) 29 U/L 5-34 BUN 13 mg/dL 6-26 Calcium 9.2 mg/dL 8.6-10.2 Chloride 98 mEq/L 94-112 Creatinine 1.6 mg/dL High 0.6-1.4 57 Carbon Dioxide 27 mEq/L 21-32 Glucose 106 mg/dL High 70-105 Sodium 141 mEq/L 134-149 Total Bilirubin 0.4 mg/dL 0.2-1.3 Total Protein 6.7 g/dL 6.3-8.1 Potassium 3.9 mEq/L 3.6-5.5 Globulin 2.5 g/dL 2.0-4.8 A/G Ratio 1.6 Calc 0.6-2.2 BUN/Creat Ratio 8.0 Calc 8.0-36.0 Complete Blood Count 07/02/2007 Torito Selma([facility]ma) WBC 6.3 x10\\S\\3/uL 3.6-9.6 Gran# 5.0 x10\\S\\3/uL 1.5-7.2 Gran% 78.8 % High 42.2-75.2 HCT 43 % 36-50 HGB 14.4 g/dL 12.1-17.2 Lymph# 1.1 x10\\S\\3/uL 0.7-4.9 Lymph% 17.3 % Low 20.5-51.1 MCH 32.7 pg 27.6-33.3 MCV 96.8 fL 82.2-97.4 MCHC 33.7 g/dL 33.0-35.5 Mo# 0.2 x10\\S\\3/uL 0.1-0.9 Mo% 3.9 % 1.7-9.3 MPV 7.0 fL Low 7.4-10.4 PLT 334 x10\\S\\3/uL 150-400 RBC 4.41 x10\\S\\6/uL 3.90-5.70 RDW 14.3 % High 11.6-13.7 Laboratory test 07/02/2007 Torito Selma([facility]) Free T4 1.51 ng/dL 0.75- 1.54 finding TSH 1.62 mIU/L 0.50-6.00 Laboratory test 07/02/2007 [facility] Medicine Sed Rate 13 MM finding (607)- - (Fma/CMC/[facility]) Laboratory test 03/28/2007 [facility] Thinprep Pap W/HPV SCR. SEE IMAGE finding [address] Of JOLLY/ASCUS [place], [place] [id number] [phone] Laboratory test 03/28/2007 [facility] TSH (Fma/CMC/[facility]) 4.80 uIU/ ml 0.5-6. finding (607)- - 0 Hemoglobin A1c (Fma/CMC/CTX) 5.1 % 4.1-5.7 Lipid 03/28/2007 [facility] Cholesterol 236 mg/dL High 120-200 Panel-ALL Lab (607)- - (Fma/CMC/[facility]) Companies HDL-Chol 46 mg/dL 30-85 Triglyceride 114 mg/dL 30-200 LDL/HDL Chol. Ratio (F/C/CTX) - Chol./HDL Ratio (Fma/CMC/CTX) - Low 30-85 LDL, Calculated ([facility]) 167 mg/dL High 0-129 HDL Risk Factor (Fma) 5.1 CALC 4.2-7.0 Comp Metabolic-ALL 03/28/2007 [facility] Glucose, Serum 98 mg/dL 70 -105 Lab Compani (607)- - (Fma/CMC/CTX) BUN (Fma/CMC/[facility]) 11 mg/dL 6-26 Creatinine (Fma/CMC/CTX) 1.6 RESULTS VIANEY'D mg/dL High 0.6-1.4 Sodium 139 134-149 Potassium 4.1 3.6-5.5 Chloride 100 mEq/L 94-112 Co2 25 21-32 Albumin (Fma/CMCC/[facility]) 4.3 3.8-5.5 Total Protein 7.3 g/dL 6.3-8.1 Calcium (Fma/CMC/[facility]) 9.6 mg/dL 8.6-10.2 Alkaline Phosphatase (F/C/CTX) 104 U/L 30-110 Ast (Sgot) (Fma/CMC/[facility]) 35 RESULT VIANEY'D U/mL High 5-34 Alt (SGPT) (CMC/[facility]/FF) 31 10-40 Bilirubin, Total 0.5 mg/dL 0.2-1.3 #GFR, Calculated (CTX) - CBC Electronic-ALL Lab [facility] 03/28/2007 [facility] WBC 6.0 3.6- 9.6 (607)- - RBC 4.55 3.90-5.70 Hemoglobin (Fma/CMC/CTX) 14.7 g/dL 12.1 - 17.2 Hematocrit (Fma/CMC/CTX) 43 % 36.1 - 50.3 Mean Corpuscular Vol 94.6 82.2-97.4 Mean Corpuscular Hemaglobin 32.3 27.6-33.3 Mean Corpuscular Hemo Concen 34.1 33.0-36.0 RDW 14.9 High 11.6-13.7 Platelets 328 10^3/ul 150-400 Mean Platelet Volume 7.9 7.4-10.4 Neutrophils % 78.1 High 42.2-75.2 Lymphocytes % 15.7 % Low 20.5 - 51.1 Monocytes % 6.2 % 1.7-9.3 Eosinophil - Basophil% - Abs Neutrophils - Abs Lymphs - Abs Mononuclear - Abs Eosinophils - Abs Basophils - Ua - Non Micro (a) 03/28/2007 [facility] Appearance CLEAR (607)- - Color LT YELLOW Glucose NEG Bilirubin NEG Ketones NEG SP Grav <=1.005 Blood NEG PH 5.5 Protein NEG Urobil 0.2 Nitrite NEG Leukocytes (Fma/CMC/[facility]) NEG Laboratory test finding 10/01/2006 [facility] Free Thyroxine 0.98 NG/ML 0.61- 1.24 58 Comp Metabolic Panel 10/01/2006 [facility] One Over Creatinine 0.66 Anion Gap 9.0 mmol/L 2-11 59 Albumin/Globulin Ratio 1.7 1-3 Albumin 3.8 GM/DL 3.6-5.4 Alkaline Phosphatase 80 U/L 30-110 Alt (SGPT) 24 U/L 14-54 Ast (Sgot) 27 U/L 12-42 BUN 13 mg/dL 6-24 Calcium 8.9 mg/dL 8.7-10.2 Chloride 103 mmol/L 101-111 Co2 (Carbon Dioxide) 25.0 mmol/L 22-32 Globulin 2.3 GM/DL 2-4 Glucose 111 mg/dL High 70-105 Potassium 4.4 mmol/L 3.5-5.0 Sodium 137 mmol/L 135-145 Bilirubin Total 0.4 mg/dL 0.4-1.5 Total Protein 6.1 GM/DL Low 6.2-8.1 BUN/Creatinine Ratio 8.7 8-20 Creatinine 1.5 mg/dL High 0.5-1.4 Laboratory test finding 10/01/2006 [facility] TSH 1.98 MIU/ML 0.34-5.60 Laboratory test finding 09/25/2006 [facility] Stool For Polys NONE SEEN Negative O P: Giardia/Crypto Screen Giardia and cryp <SEE NOTE> 60 Surgical Pathology <SEE NOTE> 61 1 Because ethnic data is not always readily available, this report includes an eGFR for both -Americans and non- Americans. The National Kidney Disease Education Program (NKDEP) does not endorse the use of the MDRD equation for patients that are not between the ages of 18 and 70, are , have extremes of body size, muscle mass, or nutritional status, or are non- or non-. According to the National Kidney Foundation, irrespective of diagnosis, the stage of the disease is based on the level of kidney function: Stage Description GFR(mL/min/1.73 m(2)) 1 Kidney damage with normal or decreased GFR 90 2 Kidney damage with mild decrease in GFR 60-89 3 Moderate decrease in GFR 30-59 4 Severe decrease in GFR 15-29 5 Kidney failure <15 (or dialysis) 2 [facility] Severe Sepsis and Septic Shock Management Bundle Measure requires all lactic acids initially measuring >2.0 mmol/L be repeated. 3 Because ethnic data is not always readily available, this report includes an eGFR for both -Americans and non- Americans. The National Kidney Disease Education Program (NKDEP) does not endorse the use of the MDRD equation for patients that are not between the ages of 18 and 70, are , have extremes of body size, muscle mass, or nutritional status, or are non- or non-. According to the National Kidney Foundation, irrespective of diagnosis, the stage of the disease is based on the level of kidney function: Stage Description GFR(mL/min/1.73 m(2)) 1 Kidney damage with normal or decreased GFR 90 2 Kidney damage with mild decrease in GFR 60-89 3 Moderate decrease in GFR 30-59 4 Severe decrease in GFR 15-29 5 Kidney failure <15 (or dialysis) 4 Troponin-I testing on Plasma Separator Tubes (PST) has a known false positive rate of 0.20-0.40%. All positive troponins reflex immediately to secondary confirmatory testing. Using the [employer] DxI 800 Access Immunoassay systems, the 99th percentile upper reference limit was demonstrated to be < 0.03 ng/mL. 5 RESULTS VERIFIED BY REPEAT ANALYSIS 6 RESULTS VERIFIED BY REPEAT ANALYSIS 7 consistent w/ previous results 8 RESULTS VERIFIED BY REPEAT ANALYSIS 9 RESULTS VERIFIED BY REPEAT ANALYSIS 10 consistent w/ previous results 11 consistent w/ previous results 12 consistent w/ previous results 13 consistent w/ previous results 14 end december 15 RESULTS VERIFIED BY REPEAT ANALYSIS 16 RESULTS VERIFIED BY REPEAT ANALYSIS 17 consistent w/ previous results 18 consistent w/ previous results 19 No bands detected 20 Specific serologic response to B. burgdorferi infection is not detected, but cannot rule out early infection during which low or undetectable antibody levels to B. burgdorferi may be present. If clinically indicated, a new serum specimen should be submitted in 7-14 days. ADDITIONAL INFORMATION CDC criteria require >=5 bands for IgG or >=2 bands for IgM for the Immunoblot to be considered positive. Bands (e.g.,p41) may be detected in patients without Lyme disease, and patterns not meeting the CDC criteria should be interpreted with caution. Immunoblot should be ordered only on specimens that are positive or equivocal by a FDA-licensed Lyme disease antibody screening test (e.g., EIA). Test Performed by: [facility] - [address] [address] Brush Cleaner: Jewel Hall II, M.D., Ph.D. 21 ADDITIONAL INFORMATION Analyte Specific Reagent: This test was developed and its performance characteristics determined by [facility]. It has not been cleared or approved by the U.S. Food and Drug Administration. 22 ADDITIONAL INFORMATION Analyte Specific Reagent: This test was developed and its performance characteristics determined by [facility]. It has not been cleared or approved by the U.S. Food and Drug Administration. Test Performed by: [facility] - [address] [address] Brush Cleaner: Jewel Hall II, M.D., Ph.D. 23 ADDITIONAL INFORMATION Analyte Specific Reagent: This test was developed and its performance characteristics determined by [facility]. It has not been cleared or approved by the U.S. Food and Drug Administration. Test Performed by: [facility] - [place] [id number] Brush Cleaner: Jewel Hall II, M.D., Ph.D. 24 consistent w/ previous results 25 RESULTS VERIFIED BY REPEAT ANALYSIS 26 RESULTS VERIFIED BY REPEAT ANALYSIS 27 result vianey'd 28 result vianey'd 29 1 BORTEX CONTAINER; 1 SST 30 No significant growth. 31 Vitamin D deficiency has been defined by the [place] of Medicine and an Endocrine Society practice guideline as a level of serum 25-OH vitamin D less than 20 ng/mL (1,2). The Endocrine Society went on to further define vitamin D insufficiency as a level between 21 and 29 ng/mL (2). 1. IOM ([place] of Medicine). 2010. Dietary reference intakes for calcium and D. Pra[place]: The National Academies Press. 2. Suhas MF, Stephanie NC, Noris WARREN, et al. Evaluation, treatment, and prevention of vitamin D deficiency: an Endocrine Society clinical practice guideline. JCEM. 2011 May; 96(7):1911-30. 32 result vianey'd 33 [employer] DEPARTMENT OF PATHOLOGY or Extension 8265 AIR PRESS OPERATOR CYTOLOGY REPORT PATIENT: JAYMIE ANTHONY : 1950 AGE: 62 Y SEX: F ACCT: [id number] PROCEDURE DATE: 04/07/2012 DATE RECEIVED: 04/08/2012 REQUESTING PHYSICIAN: NICOLE DE LA ROSA MD LOCATION: [facility] [place] Case No. [id number] PATIENT DATA: [id number] SPECIMEN SUBMITTED: * * (HPVII) THIN PREP W/HPV (LSIL/ASC/JOLLY) * * ENDOCERVICAL RELEVANT HISTORY: Hormonal RX: PREMARIN Prev.normal: 03/10 Comment: POST-MENOPAUSAL TUBAL LIGATION 1972 SPECIMEN ADEQUACY SATISFACTORY FOR EVALUATION, ENDOCERVICAL TRANSFORMATION ZONE COMPONENT PRESENT GENERAL CATEGORIZATION NEGATIVE FOR INTRAEPITHELIAL LESIONS OR MALIGNANCY COMMENTS Thin Prep Pap tests are examined with an FDA approved location-guidance system. ADDITIONAL COPIES SENT TO: Screened/Rescreened Electronically Signed Sign Out Date/Time: by: by: GERARDO LAMBERT, 04/08/2012 16:31 CT(ASCP) Note: The Pap smear is a screening test designed to aid in the detection of premalignant and malignant conditions of the uterine cervix. It is not a diagnostic procedure and should not be used as the sole means of detecting cervical cancer. Both false-positive and false-negative reports do occur. 00 UA Pap Smear performed at [facility] [place]: [place], [address] [place] [id number] special forces specialist [facility] [place] Dir: Anthony Bowens MD, [address] [facility] [phone] 02 Lab [facility] [place] Dir: Jewel Bustillos MD, [address] [place] [phone] For inquiries regarding HPV test results, the physician may contact Lab [facility]: [phone] "" 34 result vianey'd 35 RESULTS RECHECKED 36 RESULT VIANEY'D 37 FASTING 38 RESULT VIANEY'D 39 Anion gap measurement may be of limited value in the presence of any alkalosis, especially in a combined acid base disorder. . 40 Note change in reference range as of 06/24/08. The change was based on recommendations from the [place] [employer]. 41 Please note change in reference range effective 08 . 42 VERBAL TO MAYTE/ED BY LRU at 0831 on 10/16/08. Results read back accurately. 43 [COAG NEG STAPHYLOCOCCUS] - SENSITIVITY NOT PERFORMED; PROBABLE CONTAMINANT ONE BOTTLE POSITIVE OUT OF ONE DRAWN IF FURTHER TESTING IS REQUIRED, PLEASE CALL MICROBIOLOGY LABORATORY. COAG NEG STAPHYLOCOCCUS 44 GPCCL^GRAM POSITIVE COCCI RESEMBLING STAPH^SM 45 FASTING 46 RESULT VIANEY'D 47 < or=0.80 Negative 0.81 - 1.20 Equivocal >1.20 Positive 48 Negative <0.9 Equivocal 0.9 - 1.0 Positive >1.0 49 Negative <0.9 Equivocal 0.9 - 1.0 Positive >1.0 50 < or=0.90 Negative 0.91 - 1.09 Indeterminate > or=1.10 Positive 51 < or=0.90 Negative 0.91 - 1.09 Indeterminate > or=1.10 Positive 52 < or=0.90 Negative 0.91 - 1.09 Indeterminate > or=1.10 Positive 53 < or=0.90 Negative 0.91 - 1.09 Indeterminate > or=1.10 Positive 54 Acute Convalescent Chronic or Old Susceptible Infection Phase Reactivated Infection EBNA - - + + - + VCA-IgG - + - + + + - VCA-IgM - + + - - - EA-IgG - + - + - + - [place]: + Antibody Present - Antibody Absent + - Antibody Present or Absent 55 Positive Hep B Core Antibody IgM suggests an acute or recent Hepatitis B viral infection. 56 POSITIVE Hep A Antibody IgM suggests an acute or recent Hepatitis A Viral infection. . NEGATIVE Hep A Antibody IgM and POSITIVE Hep A Antibody (IgG + IgM) indicates the presence of Hep A Antibody (IgG). This confirms previous exposure and immunity to the Hepatitis A Virus. 57 RESULT VERIFIED BY REPEAT ANALYSIS 58 PLEASE NOTE NEW REFERENCE RANGES. 59 Anion gap measurement may be of limited value in the presence of any alkalosis, especially in a combined acid base disorder. . 60 Giardia and cryptosporidium antigen testing performed by immunoassay. If patient is immunocompromised or has traveled to or is from a developing country, a full ova and parasite exam with microscopic (OPMIC) is recommended. All samples will be held one month in case full ova and parasite testing is requested. Contact the Microbiology Department at [phone]. N^NEGATIVE BY IMMUNOASSAY^CRY N^NEGATIVE BY IMMUNOASSAY^LETY 61 ---- RUN DATE: 09/27/06 [facility] NMI LIVE PAGE 1 RUN TIME: 1351 Specimen Inquiry RUN USER: INTERFACE [id number] JAYMIE ANTHONY 56/F <REG REF 09/25> ([id number]) Hayes Kowalski MD. -- Specimen: [id number] SOUT Spec Date: 09/25/[address]: Hayes hickey MD. Spec Type: SURGICAL P Received: 09/25/06-1037 Copies to: Leila isaac MD. SPECIMEN COLON BIOPSY HISTORY CLINICAL INFORMATION: History of diarrhea. GROSS DESCRIPTION The specimen is received in formalin labelled "Jaymie Anthony, Colon Bx" and consists of multiple, 0.1 to 0.2 cm. doyle bits. Total, one block. DIAGNOSIS Colon, biopsy - No significant pathologic abnormality (see comment). COMMENT Although there is some slight subepithelial connective tissue deposition as confirmed by a trichrome stain with appropriate controls, the layer is not of sufficient thickness for a diagnosis of collagenous colitis. There is no active colitis, granulomas, dysplasia, or malignancy present. Signed Electronically signed JEWEL BIANCHI MD 09/27/06 -- -- DEPARTMENT OF PATHOLOGY, [address] [place] [address] [facility] Permit #[id number] Jewel Bianchi II, M.D. Director Benjy Paulson irector -- Procedures Date Code Description Status 08/08/2018 [id number] Mammogram Completed 07/04/2017 [id number] Mammogram Completed 03/30/201639894847 Mammogram Completed 04/20/[id number] Mammogram Completed 07/30/[id number] Mammogram Completed 03/07/2009 74676 Electrocardiogram Complete Completed 06/03/2008 [id number] Mammogram Completed 07/11/2007 17070 Electrocardiogram Complete Completed 04/14/[id number] Mammogram Completed 03/28/2007 93399 Vision Test- screening test of visual acuity, Completed quantitative, bila 09/25/2006 [id number] Colonoscopy Completed Encounters Type Date Location Provider Dx Diagnosis Office Visit 02/10/2019 [facility] Charm[facility] [place] I10 Essential (primary) 12:20p Benjy Samson hypertension E03.9 Hypothyroidism, unspecified K58.0 Irritable bowel syndrome with diarrhea J45.998 Other asthma F31.81 Bipolar II disorder E78.49 Other hyperlipidemia Office Visit 07/16/2018 2:40p Main Office Charmaine Samson, J45.998 Other asthma M.D. K58.0 Irritable bowel syndrome with diarrhea E03.9 Hypothyroidism, unspecified Z12.31 Encntr screen mammogram for malignant neoplasm of breast Office Visit 01/07/2018 1:00p Main Office Charmaine Samson, Z00.00 Encntr for M.D. general adult medical exam w/o abnormal findings Z12.31 Encntr screen mammogram for malignant neoplasm of breast E23.2 Diabetes insipidus I10 Essential (primary) hypertension E03.9 Hypothyroidism, unspecified F31.81 Bipolar II disorder F43.22 Adjustment disorder with anxiety K21.9 Gastro-esophageal reflux disease without esophagitis N18.9 Chronic kidney disease, unspecified Z12.11 Encounter for screening for malignant neoplasm of colon Office Visit 11/05/2017 3:20p Main Office Charmaine Parish J06.9 Acute upper Benjy Samson respiratory infection, unspecified J15.8 Pneumonia due to other specified bacteria Office Visit 10/29/2017 2:45p Main Office Manny Mchugh R05 Cough M79.1 Myalgia Office Visit 10/15/2017 3:00p Main Office Charmaine Parish E03.9 Mali Monreal M.D. unspecified I10 Essential (primary) hypertension J06.9 Acute upper respiratory infection, unspecified J20.9 Acute bronchitis, unspecified Office Visit 06/12/2017 2:00p Main Office Charmaine Samson, Z00.00 Encntr for M.D. general adult medical exam w/o abnormal findings Z12.31 Encntr screen mammogram for malignant neoplasm of breast F31.81 Bipolar II disorder E03.9 Hypothyroidism, unspecified I10 Essential (primary) hypertension F43.22 Adjustment disorder with anxiety M79.7 Fibromyalgia Office Visit 04/15/2017 3:40p Main Office Charmaine Parish M84.375A Stress fractureMali M.D. left foot, initial encounter for fracture L03.116 Cellulitis of left lower limb Y92.015 Private garage of single-family (private) house as place W29.2xxA Contact with other powered household machinery, init encntr Office Visit 01/30/2017 3:00p Main Office Charmaine Samson, F31.81 Bipolar II M.DTab disorder F43.22 Adjustment disorder with anxiety J06.9 Acute upper respiratory infection, unspecified I10 Essential (primary) hypertension Office Visit 10/09/2016 9:30a Main Office Rochelle Lucero, J31.0 Chronic rhinitis Afnp-C Office Visit 08/27/2016 1:40p Main Office Charmaine Parish I10 Essential ( primary) Benjy Samson hypertension N18.2 Chronic kidney disease, stage 2 (mild) Z23 Encounter for immunization Office Visit 04/23/2016 12:00p Main Office Charmaine Parish I10 Essential ( primary) Benjy Samson hypertension K21.9 Gastro-esophageal reflux disease without esophagitis E03.9 Hypothyroidism, unspecified J30.89 Other allergic rhinitis R53.83 Other fatigue F43.21 Adjustment disorder with depressed mood Office Visit 03/12/2016 3:20p Main Office Charmaine Parish I10 Essential ( primary) Benjy Samson hypertension K21.9 Gastro-esophageal reflux disease without esophagitis Z12.31 Encntr screen mammogram for malignant neoplasm of breast Z23 Encounter for immunization Office Visit 01/25/2016 1:00p Main Office Charmaine Parish Z00.01 Encounter for Benjy Samson general adult medical exam w abnormal findings R05 Cough E55.9 Vitamin D deficiency, unspecified I10 Essential (primary) hypertension K21.9 Gastro-esophageal reflux disease without esophagitis Office Visit 01/18/2016 1:40p Main Office Charmaine Parish G45.9 Transient cerebral Benjy Samson ischemic attack, unspecified R05 Cough K21.9 Gastro-esophageal reflux disease without esophagitis Office Visit 12/28/2015 1:00p Main Office Sonja Mchugh-C R05 Cough K21.9 Gastro-esophageal reflux disease without esophagitis E03.9 Hypothyroidism, unspecified J30.89 Other allergic rhinitis Office Visit 11/25/2015 11:20a Main Office Charmaine Parish E03.9 HypothyroidismMali M.D. unspecified E55.9 Vitamin D deficiency, unspecified G47.33 Obstructive sleep apnea (adult) (pediatric) J41.0 Simple chronic bronchitis I10 Essential (primary) hypertension E78.2 Mixed hyperlipidemia Office Visit 08/18/2015 1:00p Main Office Joann Hurley, Z48.02 Encounter for Afnp-C removal of sutures S01.00xA Unspecified open wound of scalp, initial encounter Office Visit 08/12/2015 11:00a Main Office Charmaine aPrish I10 Essential ( primary) Benjy Samson hypertension E03.9 Hypothyroidism, unspecified R73.01 Impaired fasting glucose A69.20 Lyme disease, unspecified E55.9 Vitamin D deficiency, unspecified R53.1 Weakness Z23 Encounter for immunization Office Visit 08/20/2014 9:40a Main Office Charmaine Parish 401.9 Hypertension Betina Samson M.D. 244.9 Hypothyroidism Other Unspec 790.21 Impaired Fasting Glucose 585.9 Chronic Kidney Disease Unspecified 780.79 Malaise And Fatigue Other v04.81 Need For Prophylactic Vaccination & Inoculation/Influenza Office Visit 05/18/2014 2:40p Main Office Charmaine Samson, 466.0 Bronchitis Acute M.D. 381.10 Otitis Media Simple Or Unspec Chronic Office Visit 03/15/2014 7:30p Main Office Charmaine Samson, 790.21 Impaired Fasting M.D. Glucose 401.9 Hypertension Unspec 244.9 Hypothyroidism Other Unspec 729.1 Myalgia & Myositis Unspec Office Visit 10/12/2013 6:30p Main Office Charmaine Parish 401.9 Hypertension Unspec Benjy Samson 244.9 Hypothyroidism Other Unspec 472.0 Rhinitis Chronic 782.9 Skin & Integumentary Tissue Other Symptoms 564.1 Irritable Bowel Syndrome 521.03 Dental Caries Extending Into Pulp 682.8 Cellulitis & Abscess Other Spec Sites V04.81 Need For Prophylactic Vaccination & Inoculation/Influenza Office Visit 03/24/2013 3:20p Main Office Charmaine Samson, 253.5 Diabetes Insipidus M.D. 729.1 Myalgia & Myositis Unspec 401.9 Hypertension Unspec 244.9 Hypothyroidism Other Unspec 585.9 Chronic Kidney Disease Unspecified 268.9 Vitamin D Deficiency Unspec 780.60 Fever, Unspecified Office Visit 10/29/2012 9:20a Main Office Charmaine Samson, 253.5 Diabetes Insipmukul Burleson 729.1 Myalgia & Myositis Unspec 401.9 Hypertension Unspec 472.0 Rhinitis Chronic 790.21 Impaired Fasting Glucose Office Visit 06/24/2012 1:00p Main Office Charmaine Samson, 253.5 Diabetes Insipidus Álvaro.DTab 530.81 Esophageal Reflux 244.9 Hypothyroidism Other Unspec 401.9 Hypertension Unspec Office Visit 04/07/2012 12:00p Main Office Nicole Bowser V70.0 Examination Benjy De La Rosa General Medical Routine AT [facility] V72.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 244.9 Hypothyroidism Other Unspec 298.9 Psychosis Unspec 253.5 Diabetes Insipidus 401.9 Hypertension Unspec 790.21 Impaired Fasting Glucose 794.4 Kidney Study Abnormal 729.1 Myalgia & Myositis Unspec Office Visit 03/03/2012 2:00p Main Office Nicole Bowser 298.9 Psychosis Unspec Benjy De La Rosa 253.5 Diabetes Insipidus 244.9 Hypothyroidism Other Unspec 401.9 Hypertension Unspec 794.4 Kidney Study Abnormal 790.21 Impaired Fasting Glucose Office Visit 10/22/2011 8:00p Main Office Nicole Bowser 401.9 Hypertension Unspec Benjy De La Rosa 253.5 Diabetes Insipidus 244.9 Hypothyroidism Other Unspec 298.9 Psychosis Unspec 794.4 Kidney Study Abnormal 466.0 Bronchitis Acute Office Visit 06/25/2011 1:00p Main Office Leila gunter 401.9 Hypertension Unspec Benjy Hoskins 729.1 Myalgia & Myositis Unspec 253.5 Diabetes Insipidus 244.9 Hypothyroidism Other Unspec 530.81 Esophageal Reflux 298.9 Psychosis Unspec Office Visit 02/19/2011 1:00p Main Office Leila gunter 401.9 Hypertension Unspec Benjy Hoskins 729.1 Myalgia & Myositis Unspec 253.5 Diabetes Insipidus 244.9 Hypothyroidism Other Unspec 250.00 Diabetes Mellitus W/O Compl Type II Or Unspec Controlled 530.81 Esophageal Reflux 782.1 Rash & Other Nonspec Skin Eruption Office Visit 08/21/2010 12:20p Main Office Leila gunter 401.9 Hypertension Unspec Benjy Hoskins 729.1 Myalgia & Myositis Unspec 253.5 Diabetes Insipidus 244.9 Hypothyroidism Other Unspec 530.81 Esophageal Reflux Office Visit 05/10/2010 9:00a Main Office Leila gunter 729.1 Myalgia & Benjy Hoskins Myositis Unspec 401.9 Hypertension Unspec 253.5 Diabetes Insipidus 244.9 Hypothyroidism Other Unspec 530.81 Esophageal Reflux 298.9 Psychosis Unspec 251.1 Hypoglycemia Other Spec Office Visit 04/19/2010 9:30a [facility] Rochelle 692.9 Eczema NOS, Sonja Lucero-C Contact Dermatitis NOS Office Visit 01/02/2010 3:00p Main Office Leila gunter 729.1 Myalgia & Benjy Hoskins Myositis Unspec 401.9 Hypertension Unspec 530.81 Esophageal Reflux 253.5 Diabetes Insipidus V04.81 Need For Prophylactic Vaccination & Inoculation/Influenza Office Visit 08/10/2009 10:30a Main Office Leila gunter V06.5 Tetanus Diphtheria Benjy Hoskins (DT) v06.1 Smrvkhvxod-Zqqcwkk-Ihneizru Combined (DTaP) 729.1 Myalgia & Myositis Unspec 296.89 Bipolar Disorder NEC 564.1 Irritable Bowel Syndrome Office Visit 06/09/2009 [facility] Leila gunter 726.33 Bursitis Olecranon 11:20a Office Benjy Hoskins Office Visit 05/04/2009 Main Office Leila gunter 244.9 Hypothyroidism Other 9:40a Benjy Hoskins Unspec 401.9 Hypertension Unspec 729.1 Myalgia & Myositis Unspec 296.89 Bipolar Disorder NEC 300.00 Anxiety State Unspec 253.5 Diabetes Insipidus 272.4 Hyperlipidemia Other Unspec Office Visit 03/07/2009 3:10p Main Office Leila gunter 790.29 Other Abnormal Benjy Hoskins Glucose 366.9 Cataract Unspec 244.9 Hypothyroidism Other Unspec 401.9 Hypertension Unspec V72.83 Examination Preoperative Other Spec V70.0 Examination General Medical Routine AT Health Care Facility Office Visit 02/10/2009 2:20p Main Office Leila gunter 244.9 Hypothyroidism Other Benjy Hoskins Unspec 729.1 Myalgia & Myositis Unspec 401.9 Hypertension Unspec 296.89 Bipolar Disorder NEC 493.00 Asthma Extrinsic Unspecified Office Visit 11/15/2008 4:00p Main Office Leila gunter 244.9 Hypothyroidism Other Benjy Hoskins Unspec 729.1 Myalgia & Myositis Unspec 401.9 Hypertension Unspec 530.81 Esophageal Reflux Office Visit 08/11/2008 Main Office Leila gunter V04.81 Need For Prophylactic 1:00p Benjy Hoskins Vaccination & Inoculation/Influenza 729.1 Myalgia & Myositis Unspec 296.89 Bipolar Disorder NEC 244.9 Hypothyroidism Other Unspec 401.9 Hypertension Unspec 530.81 Esophageal Reflux 780.79 Malaise And Fatigue Other Office Visit 05/06/2008 2:40p Main Office Leila gunter 729.1 Myalgia & Florinda Hoskins. Myositis Unspec 493.00 Asthma Extrinsic Unspecified 296.89 Bipolar Disorder NEC Office Visit 04/06/2008 3:40p Main Office Leila gunter 244.9 Hypothyroidism Rika Hoskins M.D. Unspec 564.1 Irritable Bowel Syndrome 401.9 Hypertension Unspec 493.00 Asthma Extrinsic Unspecified Office Visit 03/04/2008 1:40p Main Office Leila gunter 253.5 Diabetes Insipidus Benjy Hoskins 244.9 Hypothyroidism Other Unspec 729.1 Myalgia & Myositis Unspec 564.1 Irritable Bowel Syndrome 458.1 Hypotension Chronic 493.00 Asthma Extrinsic Unspecified Office Visit 12/03/2007 3:00p Main Office Leila gunter 780.79 Malaise And Benjy Hoskins Fatigue Other 530.81 Esophageal Reflux Office Visit 09/03/2007 Main Office Leila gunter V04.81 Need For Prophylactic 4:20p Benjy Hoskins Vaccination & Inoculation/Influenza 401.9 Hypertension Unspec 253.5 Diabetes Insipidus 296.89 Bipolar Disorder NEC Office Visit 07/24/2007 3:10p Main Office Leila gunter 599.0 UTI Urinary Benjy Hoskins Tract Infection Site Not Spec Office Visit 07/17/2007 5:10p Main Office Leila gunter 599.0 UTI Urinary Benjy Hoskins Tract Infection Site Not Spec Office Visit 07/11/2007 4:10p [facility] Leila gunter 780.79 Malaise And Benjy Hoskins Fatigue Other 729.1 Myalgia & Myositis Unspec 787.91 Diarrhea Office Visit 07/02/2007 2:00p Main Office Rochelle 780.79 Malaise And [place], Fatigue Other Afnp-C Office Visit 04/22/2007 9:40a Main Office Leila gunter 053.9 Herpes Zoster W/O Benjy Hoskins Complication Office Visit 03/28/2007 9:00a [facility] Leila gunter 401.9 Hypertension Office Benjy Hoskins Unspec 244.9 Hypothyroidism Other Unspec 272.4 Hyperlipidemia Other Unspec V70.0 Examination General Medical Routine AT Health Care Facility V72.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 695.89 Erythematous Conditions Other 790.6 Abnormal Blood Chemistry Other Office Visit 01/24/2007 4:20p Jeremiah gunter 401.9 Hypertension Unspec Office Benjy Hoskins Office Visit 12/20/2006 3:00p Jeremiah gunter 723.4 Cervical Office Benjy Hoskins Radiculopathy 845.09 Sprains & Strains Ankle Other Office Visit 12/06/2006 1:10p [facility] Office Leila gunter 401.1 Hypertension Benjy Hoskins Benign 296.89 Bipolar Disorder NEC 786.2 Cough Office 09/20/2006 [facility] Leila gunter V04.81 Need For Prophylactic Visit 1:20p Office Benjy Hoskins Vaccination & Inoculation/Influenza V03.82 Streptococcus Pneumoniae Vaccination Spec Other 244.9 Hypothyroidism Other Unspec 564.1 Irritable Bowel Syndrome 401.1 Hypertension Benign 296.89 Bipolar Disorder NEC Office Visit 06/14/2006 2:20p [facility] Leila gunter 253.5 Diabetes Benjy Hoskins Insipidus 530.81 Esophageal Reflux 244.9 Hypothyroidism Other Unspec 564.1 Irritable Bowel Syndrome 296.89 Bipolar Disorder NEC 300.00 Anxiety State Unspec Plan of Treatment Future Appointment(s):05/29/2019 9:00 am - Charmaine Samson M.D. at [facility]006/12/2019 2:00 pm - Charmaine Samson M.D. at [facility] [id number] - Rochelle Lucero, Sonja-CJ01.90 Acute sinusitis, [id number] CoughFollow up:Followup:. (Follow up)J45.998 Other asthmaAllNew Medication: Doxycycline Hyclate 100 mg - 1 by mouth twice a dayComments:Medication Management Patient Understands medications she's taking? Yes No Are there Barriers to Adherence? Yes No Has the patient been asked about herbal supplements and therapies, and OTC meds? Yes No Care Plan1. Patient has been queried about patient's goals/preferences and functional/lifestyle goals at relevant visits. If relevant, describe: na2. Treatment goals as explained to the patient: abovesx resolution 3. Are there barriers to meeting treatment goals? Yes No If Yes, please describe:4. Self-Management goals as described to the patient: Yes No add doxy , cont samr rxf/u if no better or sx worsen / persist
[2019-05-22] MEDS ORDERED: NS 0.9% 1000 ML** 1,000 ML IV ONE (17:21)
--- NOTE | 2019-05-22 17:47 | ED ---
Dizziness - HPI Summary HPI Summary: This pt is a 69 y/o female, accompanied by son and granddaughter, presenting to [facility] c/o dizziness today. Pt reports she woke up this morning and noted felt dizzy and had difficulty walking. She ate breakfast with little nausea. states most comfortable with eyes closed. Pt fell and landed on her bottoms. Denies head strike or LOC. Currently notes she has vertigo. Additionally reports headache, some nausea. Pt took extra strength Tylenol today with mild relief. Denies vomiting, ear pain, chest pain, SOB, diarrhea. Denies difficulty voiding. She did eat and drink today. No visin changes, no ext weakness, pareshesia, difficulty with works, speech n facial droop per family Pt previously seen in the ED about 2 months ago for the same complaint. Pt was given meclezine wit good effect - does not have any left. Did nto followup with PCP. Pt was diagnosed with bronchitis about 2 weeks ago for which she was given antibiotics. She also states she has been taking Mucinex DM, last took it this morning. states held her ears full less "stuffy" Her PCP is Dr. Samson. Pt's medications reviewed this visit. - History Of Current Complaint Chief Complaint: EDDizziness Stated Complaint: VERTIGO PER PT Time Seen by Provider: 05/22/19 17:21 Hx Obtained From: Patient Onset/Duration: Still Present Timing: Hours Severity Currently: Moderate Character: Dizzy Aggravating Factor(s): Nothing Alleviating Factor(s): Nothing Associated Signs And Symptoms: Positive: Nausea. Negative: Chest Pain, SOB, Fever, Chills - Allergies/Home Medications Allergies/Adverse Reactions: Allergies Allergy/AdvReac Type Severity Reaction Status Date / Time divalproex sodium Allergy Shakes Verified 05/22/19 16:32 [From Depakote] indomethacin [From Indocin] Allergy Diarrhea Verified 05/22/19 16:32 nabumetone [From Relafen] Allergy Unknown Verified 05/22/19 16:32 Reaction Details penicillin V Allergy Hives Verified 05/22/19 16:32 tramadol [From Ultram] Allergy Headache Verified 05/22/19 16:32 PMH/Surg Hx/FS Hx/Imm Hx Previously Healthy: Yes Endocrine/Hematology History: Reports: Hx Diabetes - INSIPIDUS, Hx Thyroid Disease Denies: Hx Anticoagulant Therapy Cardiovascular History: Reports: Hx Hypertension Denies: Hx Pacemaker/ICD Respiratory History: Denies: Hx Asthma, Hx Chronic Obstructive Pulmonary Disease (COPD) GI History: Reports: Hx Gastroesophageal Reflux Disease, Hx Hiatal Hernia, Hx Irritable Bowel Denies: Hx Ulcer History: Denies: Hx Renal Disease Musculoskeletal History: Reports: Hx Fibromyalgia Sensory History: Denies: Hx Hearing Aid Psychiatric History: Reports: Hx Panic Disorder, Other Psychiatric Issues/ Disorders - schizo-affective disorder, SAD, anxiety - Cancer History Cancer Type, 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 Hx Chemotherapy: No Hx Radiation Therapy: No - Surgical History Surgery Procedure, Year, and Place: tubal ligation-CATARACTS 2010 Infectious Disease History: No Infectious Disease History: Reports: Hx Shingles Denies: Hx Clostridium Difficile, Hx Hepatitis, Hx Human Immunodeficiency Virus (HIV), Hx of Known/Suspected MRSA, Hx Tuberculosis, Hx Known/Suspected VRE , Hx Known/Suspected VRSA, History Other Infectious Disease, Traveled Outside the [place] in Last 30 Days - Family History Known Family History: Positive: Hypertension, Other, Non-Contributory Family History: mother had ear tubes placed - Social History Occupation: Retired Lives: With Family Alcohol Use: Occasionally Substance Use Type: Reports: None Smoking Status (MU): Never Smoked Tobacco Review of Systems Negative: Fever Negative: Photophobia, Blurred Vision, Erythema Negative: Ear Ache Negative: Chest Pain Negative: Shortness Of Breath Positive: Nausea. Negative: Vomiting Neurological: Other - NEGATIVE: dizziness Positive: Headache All Other Systems Reviewed And Are Negative: Yes Physical Exam - Summary Physical Exam Summary: Vital Signs Reviewed: Yes A+Ox3, no distress, lying with eyes closed Eyes: Conjunctiva Clear, CADY. EOM intact and full, + 4 beat left horizontal nystamgus - extinguishing no photophobia ENT: Hearing grossly normal TM x 2 clear, mmoist, uvula midline, no exudate, no erythema Neck: Positive: Supple Respiratory: Positive: No respiratory distress, No accessory muscle use + CTA throughout no w/r Cardiovascular: RRR nl s1, s2 no m/r CBT <2 sec abd soft + BS nt/nd no guarding, no distension Musculoskeletal Exam: MONIQUE x 4 without difficulty Strength Intact, ROM Intact Neurological: Positive: Alert, + sensation throughout CN 2-12 wnl except nystagums Psychological: Positive: Normal Response To Family Skin: Positive: no rash, no ecchymosis Triage Information Reviewed: Yes Vital Signs On Initial Exam: Initial Vitals Temp Pulse Resp BP Pulse Ox 99.3 F 102 20 102/66 96 05/22/19 16:29 05/22/19 16:29 05/22/19 16:29 05/22/19 16:29 05/22/19 16:29 Diagnostics - Vital Signs Vital Signs Temp Pulse Resp BP Pulse Ox 05/22/19 17:28 16 05/22/19 16:29 99.3 F 102 20 102/66 96 - Laboratory Result Diagrams: 05/22/19 18:25 05/22/19 18:25 Lab Statement: Any lab studies that have been ordered have been reviewed, and results considered in the medical decision making process. - EKG 17:55 Cardiac Rate: NL - at 90 bpm EKG Rhythm: Sinus Rhythm Summary of EKG Findings: No acute changes. Re-Evaluation - Re-Evaluation First Eval Re-Evaluation Time: 18:42 Change: Improved Comment: Pt is feeling better. She asked for gingerale and jeffry crackers. eyes open. labs wnl - slight increased BUN.CR 0 were elevated before. awaiting urine reassessment Dizzy Course/Dx - Course Course Of Treatment: pt present with dizziness - and mild nausea - states room "spinning" pt has been taking mucinex for ear congestion. pt with h/o vertigo - states feels the same no fever, chills no other c/o. VSS. pt with extinguising horizontal nystagmus - no other focal findings. will check labs. IVF. mecclizine, zofran. urine and reassess. pt had neg CT 04/01 for same sx - Diagnoses Provider Diagnoses: Vertigo Discharge - Sign-Out/Discharge Documenting (check all that apply): Sign-Out Patient Signing out patient TO: Ankit Coffman Patient Received Moderate/Deep Sedation with Procedure: No - Discharge Plan Condition: Stable Disposition: HOME Prescriptions: Meclizine TAB* [Antivert 12.5 TAB*] 25 mg PO Q6HR PRN #21 tab PRN Reason: Dizziness Patient Education Materials: Vertigo (ED) Referrals: Charmaine Samson MD [Primary Care Provider] - Additional Instructions: - stay well hydrated. drink plenty of non-alcoholic, non-caffinated beverages - Take meclizine every 6 hours as needed for dizziness - slowly change positions - lying to sitting, sitting to standing - contact your doctor on Saturday to schedule a follow-up appointment next week If you have any questions or concerns - okay to return to the emergency department - Billing Disposition and Condition Condition: STABLE Disposition: Home - Attestation Statements Document Initiated by Scribe: Yes Documenting Scribe: Kimberlee Dawkins Provider For Whom Armida is Documenting (Include Credential): Chely Clark MD Scribe Attestation: Kimberlee Green, scribed for Chely Clark MD on 05/23/19 at 0541. Scribe Documentation Reviewed: Yes Provider Attestation: The documentation as recorded by the Kimberlee al accurately reflects the service I personally performed and the decisions made by me, Chely Clark MD Status of Scribe Document: Viewed
[2019-05-22] MEDS ORDERED: Meclizine TAB* 12.5 MG PO ONE ×2 (17:51→20:15)
[2019-05-22] MEDS ORDERED: Ondansetron INJ* 2 MG/ML VIAL IV ONE (18:43)
[2019-05-22 18:46] LABS: ABS Lymphocytes 0.6 10^3/ul (1.0-4.8); ABS Monocytes 0.4 10^3/ul (0-0.8); ABS Neutrophils 6.1 10^3/ul (1.5-7.7); Eosinophil % 0.3 %; Hematocrit 34 % (35-47); Hemoglobin 10.9 g/dL (12.0-16.0); Mean Corpuscular HGB Conc 33 g/dL (31-36); Mean Corpuscular Hemoglobin 31 pg (27-31); Mean Corpuscular Volume 94 fL (80-97); Mean Platelet Volume 6.8 fL (7.4-10.4); Platelet Count 339 10^3/uL (150-450); Red Blood Count 3.57 10^6 /uL (3.70-4.87); Red Cell Distribution Width 15 % (10-15); White Blood Count 7.2 10^3/uL (3.5-10.8)
[2019-05-22 18:57] LABS: Albumin 3.9 g/dL (3.2-5.2); Albumin/Globulin Ratio 1.4 (1-3); BUN/Creatinine Ratio 14.2 (8-20); EGFR African American 24.1 (>60); Globulin 2.7 g/dL (2-4); Potassium 4.6 mmol/L (3.5-5.0); Total Bilirubin 0.3 mg/dL (0.2-1.0); Total Protein 6.6 g/dL (6.4-8.9)
--- NOTE | 2019-05-22 19:06 | ED ---
Progress - Progress Note Progress Note: Patient is signed out from Dr. Clark to Dr. Coffman at 1900 05/21/19 shift change pending labwork, troponin. Labs showed RBC 3.57, Hgb 10.9, Hct 34, MPV 6.8, absolute lymphs 0.6, carbon dioxide 21, BUN 34, creatinine 2.4, glucose 104,AST 12, trop 0. Patient was discharged to home with PCP follow up. Re-Evaluation - Re-Evaluation First Eval Re-Evaluation Time: 18:42 Change: Improved Comment: Pt is feeling better. She asked for gingerale and jeffry crackers. Course/Dx - Course Course Of Treatment: Patient is signed out from Dr. Clark to Dr. Coffman at 1900 05/21/19 shift change pending labwork, troponin. Labs showed RBC 3.57, Hgb 10.9, Hct 34, MPV 6.8, absolute lymphs 0.6, carbon dioxide 21, BUN 34, creatinine 2.4, glucose 104,AST 12, trop 0. Patient was discharged to home with PCP follow up. - Diagnoses Provider Diagnoses: Vertigo Discharge - Sign-Out/Discharge Documenting (check all that apply): Patient Departure - discharge Patient Received Moderate/Deep Sedation with Procedure: No - Discharge Plan Condition: Stable Disposition: HOME Prescriptions: Meclizine TAB* [Antivert 12.5 TAB*] 25 mg PO Q6HR PRN #21 tab PRN Reason: Dizziness Patient Education Materials: Vertigo (ED) Referrals: Charmaine Samson MD [Primary Care Provider] - Additional Instructions: - stay well hydrated. drink plenty of non-alcoholic, non-caffinated beverages - Take meclizine every 6 hours as needed for dizziness - slowly change positions - lying to sitting, sitting to standing - contact your doctor on Saturday to schedule a follow-up appointment next week If you have any questions or concerns - okay to return to the emergency department - Attestation Statements Document Initiated by Scribe: Yes Documenting Scribe: ANSON LEA Provider For Whom Armida is Documenting (Include Credential): CALVIN COFFMAN MD Scribe Attestation: ANSON Green, scribed for CALVIN COFFMAN MD on 05/23/19 at 0103. Status of Scribe Document: Ready
[2019-05-22 20:24] VITALS: BP 104/65
== END 2019-05-22 20:24 | disposition home or self-care (01) ==
LOC: ED 16:26
DX: R42 Dizziness and giddiness (principal); Z88.5 Allergy status to narcotic agent; Z88.0 Allergy status to penicillin; Z88.8 Allergy status to other drugs, medicaments and biological substances; E23.2 Diabetes insipidus; E07.9 Disorder of thyroid, unspecified; I10 Essential (primary) hypertension; K21.9 Gastro-esophageal reflux disease without esophagitis
CPT/HCPCS: 36415; 80053; 83735; 84484; 85025; 93005; 96361; 96374; 99282; A9270-GY; J2405

== ENCOUNTER 2020-08-24 15:03 | Observation (INO) ==
[2020-08-24] MEDS ORDERED: NS 0.9% 1000 ml BAG 1,000 ML IV ONE (15:33)
[2020-08-24 17:11] LABS: Urine Appearance Clear; Urine Bilirubin Negative (Negative); Urine Blood Negative (Negative); Urine Color Straw; Urine Glucose Negative (Negative); Urine Ketones Negative (Negative); Urine Nitrite Negative (Negative); Urine Protein Negative (Negative); Urine Specific Gravity 1.003 (1.010-1.030); Urine Urobilinogen Negative (Negative)
[2020-08-24 18:04] LABS: ABS Basophils 0.1 10^3/ul (0-0.2); ABS Eosinophils 0.1 10^3/ul (0-0.6); ABS Lymphocytes 1.2 10^3/ul (1.0-4.8); ABS Monocytes 0.6 10^3/ul (0-0.8); ABS Neutrophils 7.2 10^3/ul (1.5-7.7); Eosinophil % 1.2 %; Hematocrit 33 % (35-47); Hemoglobin 11.4 g/dL (12.0-16.0); Lymphocyte % 13.5 %; Mean Corpuscular HGB Conc 34 g/dL (31-36); Mean Corpuscular Hemoglobin 33 pg (27-31); Mean Corpuscular Volume 95 fL (80-97); Mean Platelet Volume 6.9 fL (7.4-10.4); Platelet Count 338 10^3/uL (150-450); Red Cell Distribution Width 15 % (10-15); White Blood Count 9.1 10^3/uL (3.5-10.8)
[2020-08-24 18:12] LABS: INR 0.96 (0.82-1.09)
[2020-08-24 18:22] LABS: ALT 12 U/L (7-52); AST 16 U/L (13-39); Albumin 4.2 g/dL (3.2-5.2); Albumin/Globulin Ratio 1.4 (1-3); Alkaline Phosphatase 124 U/L (34-104); Anion Gap 12 mmol/L (2-11); BUN/Creatinine Ratio 11.5 (8-20); Blood Urea Nitrogen 28 mg/dL (6-24); CO2 Carbon Dioxide 23 mmol/L (22-32); Calcium 9.2 mg/dL (8.6-10.3); Chloride 105 mmol/L (101-111); EGFR African American 23.7 (>60); EGFR Non-African American 19.6 (>60); Glucose 92 mg/dL (70-100); Sodium 140 mmol/L (135-145); Total Protein 7.2 g/dL (6.4-8.9)
[2020-08-24 18:26] LABS: Troponin I 0.08 ng/mL (<0.03)
[2020-08-24] MEDS ORDERED: Diphenoxylat/Atrop 2.5-0.025mg TAB PO PRN (21:14)
[2020-08-24 22:47] LABS: % Iron Saturation 17 % (15-55); Iron 49 ug/dL (50-212); Total Iron Binding Capacity 283 mcg/dL (250-450); Transferrin 202 mg/dL (203-362); Unsaturated Iron Binding < 268 ug/dL
[2020-08-24 22:49] LABS: C Reactive Protein 70.31 mg/L (<8.01); Magnesium 2.3 mg/dL (1.9-2.7)
[2020-08-24 23:06] LABS: Ferritin 73.1 ng/mL (11-307)
[2020-08-24 23:23] LABS: Troponin I 0.01 ng/mL (<0.03)
[2020-08-25 01:40] LABS: HDL Cholesterol 63.1 mg/dL
[2020-08-25 06:07] LABS: ABS Eosinophils 0.2 10^3/ul (0-0.6); ABS Lymphocytes 1.2 10^3/ul (1.0-4.8); ABS Monocytes 0.8 10^3/ul (0-0.8); ABS Neutrophils 7.7 10^3/ul (1.5-7.7); Eosinophil % 1.9 %; Hematocrit 32 % (35-47); Lymphocyte % 12.6 %; Mean Corpuscular HGB Conc 34 g/dL (31-36); Mean Corpuscular Hemoglobin 33 pg (27-31); Mean Corpuscular Volume 96 fL (80-97); Mean Platelet Volume 6.5 fL (7.4-10.4); Platelet Count 303 10^3/uL (150-450); Red Blood Count 3.39 10^6 /uL (3.70-4.87); Red Cell Distribution Width 15 % (10-15); White Blood Count 9.9 10^3/uL (3.5-10.8)
[2020-08-25 06:22] LABS: BUN/Creatinine Ratio 9.7 (8-20); Calcium 8.2 mg/dL (8.6-10.3); EGFR African American 28.6 (>60); EGFR Non-African American 23.6 (>60)
[2020-08-25] MEDS: Mometasone/Formoter 200/5 MDI INH SCH ×2 (07:33→19:39)
[2020-08-25] MEDS ORDERED: Aminophylline 25 MG/ML VIAL ONE (07:49)
[2020-08-25] MEDS ORDERED: Regadenoson 0.4 MG/5 ML SYRINGE ONE (07:49)
[2020-08-25 08:46] LABS: C Reactive Protein 61.95 mg/L (<8.01)
[2020-08-25 08:48] LABS: TSH Ultra Thyroid Stim Horm 2.71 mcIU/mL (0.34-5.60)
[2020-08-25] MEDS ORDERED: Fluticasone HFA 110 mcg(NF) MDI INH SCH (09:00)
[2020-08-25] MEDS ORDERED: Albuterol HFA INHALER 8 gm MDI INH PRN (09:00)
[2020-08-25] MEDS: NFT: Azelastine 0.15% NASAL(NF) 30 ML BTL BOTH NARES SCH (11:08)
[2020-08-25] MEDS ORDERED: Enoxaparin 30 MG/0.3 ML SYR SUBCUT SCH (17:00)
[2020-08-25] MEDS ORDERED: Enoxaparin 30 MG/0.3 ML SYR ONE (17:16)
[2020-08-26 06:20] LABS: ABS Eosinophils 0.3 10^3/ul (0-0.6); ABS Lymphocytes 1.4 10^3/ul (1.0-4.8); ABS Monocytes 0.6 10^3/ul (0-0.8); ABS Neutrophils 4.4 10^3/ul (1.5-7.7); Eosinophil % 3.7 %; Hematocrit 31 % (35-47); Hemoglobin 10.5 g/dL (12.0-16.0); Mean Corpuscular HGB Conc 34 g/dL (31-36); Mean Corpuscular Hemoglobin 32 pg (27-31); Mean Corpuscular Volume 96 fL (80-97); Mean Platelet Volume 6.9 fL (7.4-10.4); Platelet Count 310 10^3/uL (150-450); Red Blood Count 3.24 10^6 /uL (3.70-4.87); Red Cell Distribution Width 15 % (10-15); White Blood Count 6.8 10^3/uL (3.5-10.8)
[2020-08-26 06:38] LABS: BUN/Creatinine Ratio 7.7 (8-20); Calcium 8.4 mg/dL (8.6-10.3); EGFR African American 30.8 (>60); EGFR Non-African American 25.4 (>60); Potassium 4.1 mmol/L (3.5-5.0)
[2020-08-26] MEDS: Mometasone/Formoter 200/5 MDI INH SCH (08:33)
[2020-08-26] MEDS: NFT: Azelastine 0.15% NASAL(NF) 30 ML BTL BOTH NARES SCH (12:06)
[2020-08-26 12:44] VITALS: BP 136/74
== END 2020-08-26 15:01 | disposition home or self-care (01) ==
LOC: ED 15:03 → MEDTELE 15:03
PROVIDERS: ADMIT Internal Medicine; ATTEND Internal Medicine

== ENCOUNTER 2021-02-15 13:15 | Observation (INO) ==
[2021-02-15 14:25] LABS: ABS Eosinophils 0.2 10^3/ul (0-0.6); ABS Monocytes 0.5 10^3/ul (0-0.8); ABS Neutrophils 2.5 10^3/ul (1.5-7.7); Eosinophil % 5.3 %; Hematocrit 35 % (35-47); Hemoglobin 11.8 g/dL (12.0-16.0); Lymphocyte % 22.8 %; Mean Corpuscular HGB Conc 34 g/dL (31-36); Mean Corpuscular Hemoglobin 32 pg (27-31); Mean Corpuscular Volume 95 fL (80-97); Platelet Count 258 10^3/uL (150-450); Red Blood Count 3.69 10^6 /uL (3.70-4.87); Red Cell Distribution Width 15 % (10-15); White Blood Count 4.2 10^3/uL (3.5-10.8)
[2021-02-15 14:28] LABS: INR 0.94 (0.82-1.09)
[2021-02-15 14:55] LABS: Albumin 4.3 g/dL (3.2-5.2); Albumin/Globulin Ratio 1.7 (1-3); BUN/Creatinine Ratio 10.5 (8-20); EGFR African American 26.7 (>60); EGFR Non-African American 22.1 (>60); Globulin 2.6 g/dL (2-4); Total Bilirubin 0.4 mg/dL (0.2-1.0); Total Protein 6.9 g/dL (6.4-8.9)
[2021-02-15] MEDS ORDERED: NS 0.9% 1000 ml BAG 1,000 ML IV ONE (14:55)
[2021-02-15 16:35] LABS: Urine Appearance Clear; Urine Bilirubin Negative (Negative); Urine Blood 1+ (Negative); Urine Color Straw; Urine Glucose Negative (Negative); Urine Ketones Negative (Negative); Urine Nitrite Negative (Negative); Urine Protein Negative (Negative); Urine Specific Gravity 1.002 (1.002-1.030); Urine Urobilinogen Negative (Negative)
[2021-02-15 16:52] LABS: Urine Bacteria Absent (Absent); Urine Red Blood Cell Absent (Absent); Urine Squamous Epithelial Cell Present (Absent); Urine White Blood Cell Absent (Absent)
[2021-02-15 21:41] LABS: TSH Ultra Thyroid Stim Horm 3.4 mcIU/mL (0.34-5.60)
[2021-02-15] MEDS: Heparin 5000 UNITS/ML 1 mL VIAL SUBCUT SCH (23:32)
[2021-02-16 06:40] LABS: HDL Cholesterol 49.4 mg/dL
[2021-02-16] MEDS: Heparin 5000 UNITS/ML 1 mL VIAL SUBCUT SCH ×3 (07:04→21:15)
[2021-02-16] MEDS ORDERED: Fluoxetine 40 mg CAP (NF) PO SCH (09:00)
[2021-02-16 15:04] LABS: Urine Benzodiazepine Screen None Detected (None Detect); Urine Cannabinoids Screen None Detected (None Detect); Urine Opiates Screen None Detected (None Detect)
[2021-02-17 06:49] LABS: ABS Eosinophils 0.3 10^3/ul (0-0.6); ABS Lymphocytes 1.9 10^3/ul (1.0-4.8); ABS Monocytes 0.5 10^3/ul (0-0.8); ABS Neutrophils 2.4 10^3/ul (1.5-7.7); Calcium 8.9 mg/dL (8.6-10.3); Eosinophil % 6.4 %; Hematocrit 33 % (35-47); Lymphocyte % 36.7 %; Mean Corpuscular HGB Conc 34 g/dL (31-36); Mean Corpuscular Hemoglobin 32 pg (27-31); Mean Corpuscular Volume 95 fL (80-97); Mean Platelet Volume 7.1 fL (7.4-10.4); Platelet Count 274 10^3/uL (150-450); Potassium 4.2 mmol/L (3.5-5.0); Red Blood Count 3.42 10^6 /uL (3.70-4.87); Red Cell Distribution Width 15 % (10-15); White Blood Count 5.2 10^3/uL (3.5-10.8)
[2021-02-17 06:54] LABS: BUN/Creatinine Ratio 10.4 (8-20); EGFR African American 27.7 (>60); EGFR Non-African American 22.9 (>60)
[2021-02-17] MEDS: Heparin 5000 UNITS/ML 1 mL VIAL SUBCUT SCH ×2 (07:26→13:21)
[2021-02-17 15:48] VITALS: BP 131/99
== END 2021-02-17 17:50 | disposition home or self-care (01) ==
LOC: ED 13:15 → MEDTELE 13:15
PROVIDERS: ADMIT Internal Medicine; ATTEND Internal Medicine